=== PATIENT | female | born 1980 | race Caucasian/White ===

== ENCOUNTER 2016-10-16 16:14 | Emergency (ER) | payer MEDICAID ==
[~2016-10-16] VITALS: Ht 167.6 cm; Wt 81.8 kg
[~2016-10-16 16:14] MED LIST: ACET-2161 PO; ALBU8.5H INH; BUSP5TAB3 PO; CYCL5TAB PO; DIPH25TA23 PO; ESCI20TA30 PO; IBUP-1547 PO; LOPE2TAB8 PO; LORA10TA7 PO; MAGN400O4 PO; MULT-1198 PO; OMEP40CA52 PO; PROM25TA7 PO; QUET300T3 PO; TOLT4CAP13 PO; VITA1TAB15 PO
--- OUTSIDE RECORDS SUMMARY | 2016-10-16 16:19 | XMS REPORT ---
Author Author Nik Fatima Organization [employer] Address Unknown Phone Unavailable Care Team Providers Care Template Fitter Name Role Phone Nik Fatima CP Unavailable Allergies, Adverse Reactions, Alerts Substance Reaction Event Type Lorazepam Info Not Available Drug Allergy Demerol Info Not Available Drug Allergy Codeine Sulfate Info Not Available Drug Allergy seasonal allergies Info Not Available Non Drug Allergy Problems Problem Type Condition Code Onset Dates Condition Status Assessment Fall on same level, unspecified, initial encounter W18.30XA Active Problem Anxiety disorder, unspecified F41.9 Active Problem Opioid type dependence, unspecified abuse 304.00 Active Assessment Pain in left knee M25.562 Active Assessment Pain in right knee M25.561 Active Problem Pain in left knee M25.562 Active Problem Bipolar disorder, unspecified F31.9 Active Problem Pain in right knee M25.561 Active Problem Bipolar disorder, current episode depressed, mild or moderate severity , unspecified F31.30 Active Problem Other symptoms and signs involving cognitive functions and awareness R41.89 Active Problem Gastro-esophageal reflux disease without esophagitis K21.9 Active Problem Attention-deficit hyperactivity disorder, other type F90.8 Active Medications Medication Code System Code Instructions Start Date End Date Status Dosage Total B/C [facility] [address]-95 1 Orally daily 1 Zofran ODT [facility] [address]-70 4 MG Orally every 6 hours December 12, 2015 one tab every 6 hours as needed for nausea/vomiting. ProAir HFA [facility] [address]-30 108 (90 Base) MCG/ACT Inhalation every 6 hrs Mar 22, 2016 1 to 2 puffs as needed for cough Omeprazole [facility] [address]-25 40 MG Orally Once a day 1 capsule Tolterodine Tartrate ER [facility] [address]-04 4 MG Orally Once a day 1 capsule Colace [facility] [address]-77 100 MG Orally Once a day May 02, 2016 Jul 31, 2016 1 capsule as needed Wheelchair [facility] [address] 1 OP/PT Evaluation & Treatment for wheelchair seat Daily February 05, 2016 as directed Nystatin [facility] [address]-20 085334 UNIT/GM Externally Twice a day December 19, 2015 apply twice per day to phyllis Goyal [facility] [address]-68 100 MG Orally Three times a day Mar 22, 2016 1 capsule as needed for cough/congestion BuSpar NDC 0 5mg po BID 1 Seroquel XR [facility] [address]-86 300 MG Orally Once a day 1 tablet in the evening Lexapro [facility] [address]-71 20 MG Orally Once a day January 24, 2015 1 tablet every AM Meclizine HCl [facility] [address]-01 25 MG Orally every 8 hours as needed for vertigo. Mar 28, 2016 1 tablet as needed for vertigo symptoms Procedures Procedure Coding System Code Date OFFICE VISIT, EST-LOW COMPLEXITY (15 MIN.) CPT-4 60548 Jun 11, 2016 Vital Signs Date/Time: Jun 11, 2016 Blood Pressure Systolic 126 mm Hg Cardiac Monitoring Heart Rate 88 /min Temperature 98.1 F Oximetry 94 % Respiratory Rate 16 /min Blood Pressure Diastolic 72 mm Hg Results No Known Results Summary Purpose [employer] Submission
--- OUTSIDE RECORDS SUMMARY | 2016-10-16 16:20 | XMS REPORT ---
Author Author Nik Fatima Organization [employer] Address Unknown Phone Unavailable Care Team Providers Care Expedition Supervisor Name Role Phone Nik Fatima CP Unavailable Allergies No Known Allergies Problems Problem Type Condition Code Onset Dates Condition Status Problem Gastro-esophageal reflux disease without esophagitis K21.9 Active Problem Attention-deficit hyperactivity disorder, other type F90.8 Active Problem Bipolar disorder, unspecified F31.9 Active Problem Anxiety disorder, unspecified F41.9 Active Problem Opioid type dependence, unspecified abuse 304.00 Active Problem Bipolar disorder, current episode depressed, mild or moderate severity , unspecified F31.30 Active Problem Other symptoms and signs involving cognitive functions and awareness R41.89 Active Medications No Known Medications Results No Known Results Summary Purpose [employer] Submission
--- OUTSIDE RECORDS SUMMARY | 2016-10-16 16:20 | XMS REPORT ---
Author Author Nik Fatima Organization [employer] Address Unknown Phone Unavailable Care Team Providers Care Shift Manager Name Role Phone Nki Fatima CP Unavailable Allergies, Adverse Reactions, Alerts Substance Reaction Event Type Lorazepam Info Not Available Drug Allergy Demerol Info Not Available Drug Allergy Codeine Sulfate Info Not Available Drug Allergy seasonal allergies Info Not Available Non Drug Allergy Problems Problem Type Condition Code Onset Dates Condition Status Assessment Trochanteric bursitis, left hip M70.62 Active Problem Gastro-esophageal reflux disease without esophagitis [...] cognitive functions and awareness R41.89 Active Medications Medication Code System Code Instructions Start Date End Date Status Dosage Seroquel XR [facility] [address]-79 300 MG Orally Once a day 1 tablet in the evening Nystatin [facility] [address]-62 698228 UNIT/GM Externally Twice a day December 19, 2015 apply twice per day to groin BuSpar NDC 0 5mg po BID 1 Tessalon Perles [facility] [address]-87 100 MG Orally Three times a day Mar 22, 2016 1 capsule as needed for cough/congestion Colace [facility] [address]-51 100 MG Orally Once a day May 02, 2016 Jul 31, 2016 1 capsule as needed ProAir HFA [facility] [address]-65 108 (90 Base) MCG/ACT Inhalation every 6 hrs Mar 22, 2016 1 to 2 puffs as needed for cough Omeprazole [facility] [address]-15 40 MG Orally Once a day 1 capsule Total B/C [facility] [address]-59 1 Orally daily 1 Tolterodine Tartrate ER [facility] [address]-63 4 MG Orally Once a day 1 capsule Meclizine HCl [facility] [address]-04 25 MG Orally every 8 hours as needed for vertigo. Mar 28, 2016 1 tablet as needed for vertigo symptoms Lexapro [facility] [address]-93 20 MG Orally Once a day January 24, 2015 1 tablet every AM Wheelchair [facility] [place] [address] 1 OP/PT Evaluation & Treatment for wheelchair seat Daily February 05, 2016 as directed Zofran ODT [facility] [address]-24 4 MG Orally every 6 hours December 12, 2015 one tab every 6 hours as needed for nausea/vomiting. Procedures Procedure Coding System Code Date OFFICE VISIT, EST-LOW COMPLEXITY (15 MIN.) CPT-4 02504 May 16, 2016 Vital Signs Date/Time: May 16, 2016 Blood Pressure Systolic 128 mm Hg Cardiac Monitoring Heart Rate 94 /min Temperature 98.2 F Oximetry 96 % Respiratory Rate 16 /min Blood Pressure Diastolic 76 mm Hg Results No Known Results Summary Purpose [employer] Submission
--- OUTSIDE RECORDS SUMMARY | 2016-10-16 16:20 | XMS REPORT ---
Author Author Nik Fatima Organization [employer] Address Unknown Phone Unavailable Care Team Providers Care Director Of Academic Support Name Role Phone Nik Fatima CP Unavailable [...]
--- OUTSIDE RECORDS SUMMARY | 2016-10-16 16:21 | XMS REPORT | Continuity of Care Document ---
Author Author [facility] Organization [facility] Address Unknown Phone Unavailable Care Team Providers Care Cam Milling Machine Operator Name Role Phone FERNANDO REID MD Primary Care Physician [phone] Insurance Providers Payer Name Policy Number Subscriber Name Relationship [facility] [id number] Tia Young 19 Self Advance Directives Directive Response Recorded Date/Time Ordered Resuscitation Status Full Code 08/15/14 4:00pm Resuscitation Documents on File No 08/15/14 4:50pm Chief Complaint and Reason for Visit Chief Complaint RT UPPER EXTREMITY CELLULITIS Reason for Visit Cellulitis of right upper extremity Cellulitis of right upper extremity Acute pain in joint Nausea Cerebral palsy Depression Scoliosis Failure of outpatient treatment Hypokalemia Problems Medical Problems Problem Onset Date Status GASTROENTERITIS Unknown Active Cellulitis of right upper extremity Unknown Active Cellulitis of right upper extremity Unknown Active Acute pain in joint Unknown Active Nausea Unknown Active Cerebral palsy Unknown Active Depression Unknown Active Scoliosis Unknown Active Failure of outpatient treatment Unknown Active Hypokalemia Unknown Resolved Medications Medication Dose Route Sig Days/Qty Instructions Order Date Discontinued Date Status Aripiprazole 5 Mg PO DAILY 05/18/10 06/25/11 Discontinued Loperamide Hcl 1 Mg PO NEEDED 06/20/08 02/14/10 Discontinued [Apap 500 Mg] 1 Tab PO NEEDED 05/18/10 07/01/12 Discontinued [Bisacodyl 10MG] NEEDED 06/20/08 02/14/10 Discontinued [Chantix 1MG] 06/20/08 02/14/10 Discontinued Ibuprofen 100 Mg PO NEEDED 06/20/08 02/14/10 Discontinued [Citirizine Hcl 10 Mg] DAILY 06/20/08 02/14/10 Discontinued [Denavir 1% Cream] NEEDED 06/20/08 02/14/10 Discontinued [Dss 100 Mg] NEEDED 06/20/08 02/14/10 Discontinued Isomethept/Acetaminop/Dichlphn 1 Cap PO NEEDED 06/20/08 02/14/10 Discontinued Cyclobenzaprine Hcl NEEDED 06/20/08 02/14/10 Discontinued Guaifenesin/D-Methorphan Hb 1 Tab.sr PO TWICE A DAY 06/20/08 Discontinued Hydrocodone Bit/Acetaminophen 1 Tab PO NEEDED 06/20/08 02/14/10 Discontinued [Naproxen 220 Mg] 120 Mg PO TWICE A DAY 05/18/10 07/01/12 Discontinued [Nyststin Cream 30 Gm] TOP NEEDED 05/18/10 06/25/11 Discontinued [Oystcal 500 Mg] TWICE A DAY 02/14/10 03/04/10 Discontinued Paroxetine Hcl BEDTIME 02/14/10 03/04/10 Discontinued Lansoprazole 1 Cap PO DAILY 05/18/10 02/10/11 Discontinued Prochlorperazine Maleate 10 Mg PO NEEDED 06/20/08 02/14/10 Discontinued Promethazine Hcl 25 Mg RC NEEDED 02/14/10 03/04/10 Discontinued [Saline Nasal [place]] NEEDED 02/14/10 03/04/10 Discontinued [Sennalax-S Tabl1 Tab] NEEDED 02/14/10 03/04/10 Discontinued [Trazadone 100MG] BEDTIME 06/20/08 02/14/10 Discontinued D-Methorphan Hb/P-Ephed Hcl NEEDED 02/14/10 03/04/10 Discontinued Vitamins A And D NEEDED 02/14/10 03/04/10 Discontinued Trazodone Hcl 100 Mg PO DAILY 05/18/10 12/18/11 Discontinued Sertraline Hcl 100 Mg PO DAILY 05/18/10 07/01/12 Discontinued Ziprasidone Hcl 1 Mg PO TWICE A DAY 05/18/10 02/10/11 Discontinued Ziprasidone Hcl 1 Mg PO DAILY 05/18/10 02/10/11 Discontinued Tolterodine Tartrate 1 Mg PO DAILY 05/18/10 Active Divalproex Sodium 1 Mg PO TWICE A DAY 05/18/10 02/10/11 Discontinued Cetirizine Hcl 1 Mg PO DAILY 05/18/10 11/01/12 Discontinued Omeprazole 1 Mg PO DAILY 05/18/10 Active Fluoride Ion/Multivitamins 1 Mg PO DAILY 05/18/10 Active Lamotrigine 1 Mg PO DAILY 05/18/10 05/05/11 Discontinued Vitamin B Comp W-C 1 Tab PO DAILY 05/18/10 Active Isomethept/Acetaminop/Dichlphn 1 Cap PO NEEDED 05/18/10 05/05/11 Discontinued [Ventolin 90 Mcg Inah] 2 Puff INH NEEDED 05/18/10 06/25/11 Discontinued Ondansetron Hcl NEEDED 06/18/10 06/25/11 Discontinued Ziprasidone Hcl 60 Mg PO BEDTIME 02/10/11 12/01/11 Discontinued Ziprasidone Hcl 40 Mg PO DAILY 02/10/11 12/18/11 Discontinued Bupropion Hcl 100 Mg PO TWICE A DAY 1 Qty 06/25/11 06/22/12 Discontinued Quetiapine Fumarate 200 Mg PO DAILY 12/18/11 Active Ondansetron 4 Mg PO NEEDED 12/25/11 Active Acetaminophen 500 Mg PO TWICE A DAY 06/22/12 Active Miconazole Nitrate 45 Gm VG BEDTIME 07/01/12 11/01/12 Discontinued Sertraline Hcl 50 Mg PO DAILY 07/01/12 Active Isomethept/Acetaminop/Dichlphn 1 Cap PO EVERY 4-6 HOURS PRN 07/01/12 11/01/12 Discontinued Naproxen 500 Mg PO TWICE A DAY 07/01/12 Active Guaifenesin 600 Mg PO TWICE A DAY 07/01/12 11/01/12 Discontinued Albuterol Sulfate 18 Gm IH EVERY 4-6 HOURS PRN 07/01/12 12/29/12 Discontinued Tramadol Hcl 50 Mg PO EVERY 4-6 HOURS PRN 07/01/12 11/01/12 Discontinued Loratadine 10 Mg PO NEEDED 11/01/12 Active Cephalexin 2 Cap PO TWICE A DAY 08/15/14 08/20/14 Discontinued Sulfamethoxazole/Trimethoprim 1 Tab PO TWICE A DAY Take 1 tablet, by mouth, 2 times a day. 08/15/14 08/20/14 Discontinued Sulfamethoxazole/Trimethoprim 1 Tab PO TWICE A DAY 08/15/14 Active Cephalexin 1 Cap PO THREE TIMES A DAY 08/15/14 08/20/14 Discontinued Social History Social History Problem Response Recorded Date/Time Hx Alcohol Use Yes 08/15/2014 4:05pm Has the pt used tobacco in the last 12 months No 08/15/2014 4:57pm Tobacco Usage smoke 08/15/2014 6:54pm Query Response Start Date Stop Date Smoking Status Former smoker Hospital Discharge Instructions Instructions: Care Instructions: Reason for Hospitalization: Cellulititis of right upper ext I was in the hospital because (patient own words): "SORE ON MY ELBOW" Discharge Diet: Regular Discharge Activity: As tolerated Follow Up Appointments: Dr Reid in ~ [address] Shah [facility] in 10-14 days Wound/Incision Care: Allyevyn foam dressing overlying the open portion of the wound on Right elbow. Change every 3-5 days Condition at time of discharge: Good Good fever > 101, worsening confusion General Information: n/a Condition at time of discharge: Good Plan of Care Discharge Date 08/20/14 2:10pm Disposition 01 DISCHARGED HOME, SELF-CARE Instructions/Education Provided DI for Cellulitis -- Adult Prescriptions See Medications Section Functional Status Query Response Date Recorded Physical Hygiene Self August 20, 2014 11:37am Disabilities Visual August 20, 2014 11:37am Devices Used Glasses Wheelchair August 20, 2014 11:37am Dressing Self August 20, 2014 11:37am Ambulation Assist August 20, 2014 11:37am Diet Self August 20, 2014 11:37am Mental Status Alert August 20, 2014 11:37am Disabilities Visual August 20, 2014 11:37am Devices Used Glasses Wheelchair August 20, 2014 11:37am Physical Hygiene Self August 20, 2014 11:37am Dressing Self August 20, 2014 11:37am Ambulation Assist August 20, 2014 11:37am Diet Self August 20, 2014 11:37am Allergies, Adverse Reactions, Alerts Allergen Type Severity Reaction Status Last Updated meperidine HCl Allergy Unknown Active 08/15/14 Lorazepam Allergy Unknown Active 08/15/14 Codeine Allergy Unknown Active 08/15/14 Immunizations Name Given Type Hx Influenza Vaccination No Historical Hx Pneumococcal Vaccination Y YEAR UNKNOWN Historical Hx Tetanus, Diptheria, Pertussis Y 08/2008 Historical Hx Influenza Vaccination No Historical Hx Tetanus, Diptheria, Pertussis Y 08/2008 Historical Vital Signs Acute Vital Signs Vital Response Date/Time Temperature (Fahrenheit) 98.6 deg F (96.8 - 99.1) Temperature (Calculated Celsius) 37.86512 degrees C (36.0 - 37.3) Temperature Source Oral Pulse Rate (adult) 107 bpm (60 - 100) Respiratory Rate 16 breaths/min (10 - 20) Height 5 ft 4 in Weight 225 lb Body Mass Index 38.0 kg/m^2 Results Test Source Date Result Interp. Ref. Range Comments Acetaminophen Level December 18, 2011 9:51pm < 10 UG/ML L 10-30 TOXIC <4 HR POST INGESTION: >150 MG/L;TOXIC <12 HR POST INGESTION: >50 MG/L Activated Partial Thromboplast Time June 22, 2012 12:28pm 31.2 SEC N 24-36 Are you ordering this test to rule out VTE Yes Alanine Aminotransferase (ALT/SGPT) August 20, 2014 5:05am 99 U/L H 9- 52 Albumin August 20, 2014 5:05am 3.5 G/DL N 3.5-5.0 Albumin/Globulin Ratio August 20, 2014 5:05am 1.1 RATIO N 1.1-2.2 Alcohol, Quantitative December 18, 2011 9:51pm <10 MG/DL - Alkaline Phosphatase August 20, 2014 5:05am 115 U/L N 38-126 Amylase Level July 31, 2013 3:55am 84 U/L N 30-110 Anion Gap August 20, 2014 5:05am 10 MEQ/L N 5-15 Aspartate Amino Transf (AST/SGOT) August 20, 2014 5:05am 73 U/L H 14- 36 B-Type Natriuretic Peptide June 25, 2011 4:45pm < 15 PG/ML L 15-100 BUN/Creatinine Ratio August 20, 2014 5:05am 10 RATIO N 6-26 Band Neutrophils # July 31, 2013 3:55am 0.3 T/MM3 - Band Neutrophils % July 31, 2013 3:55am 2.0 % N 0-6 Basophils # (Auto) August 20, 2014 5:05am 0.0 T/MM3 N 0-0.2 Basophils (%) (Auto) August 20, 2014 5:05am 0.2 % N 0-2 Blood Urea Nitrogen August 20, 2014 5:05am 8.0 MG/DL N 7-17 Calcium Level August 20, 2014 5:05am 9.2 MG/DL N 8.4-10.2 Calculated Osmolality August 20, 2014 5:05am 268 MOSM/KG N 261-280 Carbon Dioxide Level August 20, 2014 5:05am 25 MEQ/L N 22-30 Chemistry Specimen Hemolysis August 20, 2014 5:05am < 15 0-25 0-25: No Hemolysis.26-70: Slight Hemolysis - can falsely elevate K and Urine Protein. 71-285: Moderate Hemolysis - can falsely elevate K, Troponin I, CA 19-9, PTH, CSF GLucose, and Urine Protein, and can falsely decrease Phenytoin. 286-999: Gross Hemolysis - can falsely elevate K, Troponin I, CA 19-9, PTH, CSF Glucose, and Urine Protine, and can falsely decrease Phenytoin. Recommend specimen recollection. Chloride Level August 20, 2014 5:05am 106 MEQ/L N 98-107 Cholesterol Level March 04, 2010 11:30pm 191 MG/DL N 132-199 Cholesterol/HDL Ratio March 04, 2010 11:30pm 4.2 RATIO H 0-4.0 Conjugated Bilirubin July 22, 2012 7:15pm 0.00 MG/DL N 0.00-0.30 Creatinine August 20, 2014 5:05am 0.8 MG/DL N 0.7-1.2 D-Dimer June 22, 2012 12:28pm < 150 NG/ML 0-230 <224 NG/ML= PRESUMPTIVE NEGATIVE FOR PE OR DVT>224 NG/ML=ADDITIONAL EVALUATION FOR PE OR DVT RECOMMENDED Eosinophils # (Auto) August 20, 2014 5:05am 0.1 T/MM3 N 0-0.5 Eosinophils (%) (Auto) August 20, 2014 5:05am 0.6 % N 0-4 Globulin August 20, 2014 5:05am 3.3 G/DL N 2.4-3.6 Glomerular Filtration Rate Calc August 20, 2014 5:05am 83 - Glucometer May 05, 2011 6:31pm 93 mg/dL N 65-110 Glucose Level August 20, 2014 5:05am 87 MG/DL N 65-110 HDL Cholesterol Direct March 04, 2010 11:30pm 46 MG/DL N 40-60 Hematocrit August 20, 2014 5:05am 35.6 % L 36-46 Hemoglobin August 20, 2014 5:05am 11.5 GM/DL L 12-16 Human Chorionic Gonadotropin, Qual June 20, 2008 10:38pm Negative - Icterus Index August 20, 2014 5:05am < 2 0-7 Immature Granulocyte # (Auto) August 20, 2014 5:05am 0.04 T/MM3 H 0.00- 0.03 Immature Granulocyte % (Auto) August 20, 2014 5:05am 0.3 % N 0.0-0.5 LDL Cholesterol, Calculated March 04, 2010 11:30pm 121.4 N 66-159 Lab Scanned Report August 12, 2014 8:34pm LAB TEST FORM REQUEST [id number] - Lipase July 31, 2013 3:55am 92 U/L N 23-300 Lymphocytes # (Auto) August 20, 2014 5:05am 1.5 T/MM3 N 1-4.8 Lymphocytes # (Manual) July 31, 2013 3:55am 0.1 T/MM3 L 1-4.8 Lymphocytes % (Manual) July 31, 2013 3:55am 1.0 % L 23-45 Lymphocytes (%) (Auto) August 20, 2014 5:05am 11.0 % L 23-45 Magnesium Level August 16, 2014 4:16am 2.0 MG/DL N 1.6-2.3 Mean Corpuscular Hemoglobin August 20, 2014 5:05am 27.4 UUG N 26-34 Mean Corpuscular Hemoglobin Concent August 20, 2014 5:05am 32.3 GM/DL N 31-37 Mean Corpuscular Volume August 20, 2014 5:05am 85.0 UM3 N 80-100 Mean Platelet Volume August 20, 2014 5:05am 8.6 UM3 L 9.4-12.4 Monocytes # (Auto) August 20, 2014 5:05am 1.0 T/MM3 H 0-0.8 Monocytes (%) (Auto) August 20, 2014 5:05am 7.4 % N 0-9.0 HM-Suu-C-Type Natriuretic Peptide June 22, 2012 12:28pm 53 PG/ML N 0 -175 Rule in cut points: <50 years old=450; 50-75 years old=900; >75 years old=1800; When utilizing ProBNP rule-in cut points, adjustment for impaired renal function is typically not required. Neutrophils # (Auto) August 20, 2014 5:05am 10.7 T/MM3 H 1.8-7.7 Neutrophils # (Manual) July 31, 2013 3:55am 12.3 T/MM3 H 1.8-7.7 Neutrophils % (Manual) July 31, 2013 3:55am 97.0 % H 33-66 Neutrophils (%) (Auto) August 20, 2014 5:05am 80.5 % H 33-66 Platelet Count August 20, 2014 5:05am 330 T/MM3 N 130-400 Potassium Level August 20, 2014 5:05am 3.7 MEQ/L N 3.6-5 Prealbumin August 15, 2014 2:09pm 21.3 MG/DL N 17.6-36.0 COMMENT may use blood in lab Procalcitonin August 16, 2014 4:16am < 0.05 NG/ML - PCT </=0.5 ng/ mL - sepsis not likely;PCT >0.5 and </=2 ng/mL - sepsis possible; PCT >2 ng/mL - sepsis likely; PCT >/=10 ng/mL - systemic inflammatory response - sepsis or septic shock highly indicated. Prothromb Time International Ratio June 22, 2012 12:28pm 1.02 N 0.86 -1.10 THERAPUTIC RANGE=2.00-3.00 FOR ANTI-THROMBOSIS THERAPUTIC RANGE=2.50- 3.50 FOR IMPLANTED VALVE RDW Standard Deviation August 20, 2014 5:05am 43.0 FL N 36.9-50.2 Red Blood Count August 20, 2014 5:05am 4.19 M/MM3 N 4.00-5.20 Salicylates Level December 18, 2011 9:51pm < 1.0 MG/DL L 2-20 Sodium Level August 20, 2014 5:05am 141 MEQ/L N 134-144 Thyroid Stimulating Hormone (TSH) August 15, 2014 2:09pm 0.57 MIU/L N 0.47-4.68 COMMENT may use blood in lab Total Bilirubin August 20, 2014 5:05am 0.70 MG/DL N 0.20-1.30 Total Protein August 20, 2014 5:05am 6.8 G/DL N 6.3-8.2 Triglycerides Level March 04, 2010 11:30pm 118 MG/DL N 35-135 Troponin I July 22, 2012 7:15pm < 0.012 ng/ml 0-0.12 Turbidity August 20, 2014 5:05am < 20 0-20 Unconjugated Bilirubin July 22, 2012 7:15pm 0.20 MG/DL N 0.00-1.10 Urinalysis Comment July 22, 2012 9:40pm Microscopic not ind. - Has specimen been collected/obtained? Y Urine Acetaminophen Screen December 18, 2011 10:10pm Positive NG/ML - Urine Amphetamines Screen December 18, 2011 10:10pm Negative NG/ML - Urine Bacteria December 25, 2011 7:15am Trace H - Has specimen been collected/obtained? Y Urine Barbiturates Screen December 18, 2011 10:10pm Negative NG/ML - Urine Benzodiazepines Screen December 18, 2011 10:10pm Negative NG/ML - Urine Bilirubin July 31, 2013 4:32am Negative - Has specimen been collected/obtained? Y Urine Blood July 31, 2013 4:32am Negative - Has specimen been collected/obtained? Y Urine Calcium Oxalate Crystals June 10, 2011 9:10am Few - Has specimen been collected/obtained? Y Urine Cannabinoids Screen December 18, 2011 10:10pm Negative NG/ML - Urine Cocaine Screen December 18, 2011 10:10pm Negative NG/ML - Urine Collection Type July 31, 2013 4:32am Straight cath - Has specimen been collected/obtained? Y Urine Color July 31, 2013 4:32am Yellow - Has specimen been collected/obtained? Y Urine Culture Indicated July 31, 2013 4:32am Cult not indicated - Has specimen been collected/obtained? Y Urine Drug Screen Confirmation March 05, 2010 12:44am Sent out - Urine Glucose (UA) July 31, 2013 4:32am Negative - Has specimen been collected/obtained? Y Urine Ketones July 31, 2013 4:32am Negative - Has specimen been collected/obtained? Y Urine Leukocyte Esterase July 31, 2013 4:32am Negative - Has specimen been collected/obtained? Y Urine Methadone Screen December 18, 2011 10:10pm Negative NG/ML - Urine Methamphetamines Screen December 18, 2011 10:10pm Negative NG/ML - Urine Microscopic Not Indicated May 05, 2011 6:36pm Not indicated - Has specimen been collected/obtained? Y Urine Mucus March 05, 2010 12:20am Present - Has specimen been collected/obtained? Y Urine Nitrite July 31, 2013 4:32am Negative - Has specimen been collected/obtained? Y Urine Opiates Screen December 18, 2011 10:10pm Negative NG/ML - Urine Phencyclidine Screen December 18, 2011 10:10pm Negative NG/ML - Urine Test December 25, 2011 7:15am Negative - Has specimen been collected/obtained? Y Urine Protein July 31, 2013 4:32am Negative - Has specimen been collected/obtained? Y Urine RBC December 18, 2011 10:10pm 1-3 /HPF - Has specimen been collected /obtained? Y Urine Specific [place] July 31, 2013 4:32am 1.015 - Has specimen been collected/obtained? Y Urine Squamous Epithelial Cells December 25, 2011 7:15am Few - Has specimen been collected/obtained? Y Urine Transitional Epithelial Cells March 05, 2010 12:20am 1-3 /HPF - Has specimen been collected/obtained? Y Urine Tricyclic Antidepressants December 18, 2011 10:10pm Negative NG/ML - Urine Turbidity July 31, 2013 4:32am Clear - Has specimen been collected/obtained? Y Urine Urobilinogen July 31, 2013 4:32am Normal EU/DL - Has specimen been collected/obtained? Y Urine WBC December 25, 2011 7:15am 0-1 /HPF - Has specimen been collected/ obtained? Y Urine pH July 31, 2013 4:32am 5.0 - Has specimen been collected/ obtained? Y VLDL Cholesterol March 04, 2010 11:30pm 23.6 MG/DL N 0-28 Valproic Acid (Depakene) Level May 18, 2010 12:20pm 19.0 UG/ML L 50- 120 Vancomycin Level Trough August 17, 2014 6:39am 20.07 UG/ML H 15-20 Venous Blood Lactate August 16, 2014 4:16am 0.6 MMOL/L N 0.6-2.2 Vitamin B12 Level August 15, 2014 2:09pm 701 PG/ML N 239-931 COMMENT may use blood in lab White Blood Count August 20, 2014 5:05am 13.3 T/MM3 H 4.5-11.0 Blood Culture Peripheral Blood August 15, 2014 2:09pm NO GROWTH AFTER 5 DAYS Urine Culture Urine, Clean Catch Voided December 18, 2011 10:10pm Gram Positive Adan Gram Stain Elbow-Right August 12, 2014 6:25pm Name: TAI YOUNG #: [id number] : 1980 Sex: F Loc / Svc: SRG DOS: 08/15/14 Signed Report #: [id number] DIAGNOSTIC IMAGING REPORT TYPE OF EXAM: ELBOW RIGHT 3 VIEW Dictated By: TORSTEN DEL RIO MD Indication: ITS.REASON: right elbow pain, r/o effusion Comparison: None Findings: There is no acute fracture, dislocation or malalignment identified. No joint effusion seen. Impression: No acute osseous abnormality. . Procedures Procedure Status Date Provider(s) CULTURE OTHR SPECIMN AEROBIC completed 08/12/14 CULTR BACTERIA EXCEPT BLOOD completed 08/12/14 CULTURE TYPE IMMUNOLOGIC completed 08/12/14 MICROBE SUSCEPTIBLE RICHY completed 08/12/14 SMEAR GRAM STAIN completed 08/12/14 Encounters Encounter Location Date/Time Discharged Inpatient [facility] 08/16/14 8:16pm Registered Clinic [facility] 08/12/14 8:14pm Recent Diagnosis Cellulitis of right upper extremity Cellulitis of right upper extremity Acute pain in joint Nausea Cerebral palsy Depression Scoliosis Failure of outpatient treatment Hypokalemia
--- OUTSIDE RECORDS SUMMARY | 2016-10-16 16:21 | XMS REPORT ---
Author Author Nik Fatima Organization [employer] Address Unknown Phone Unavailable Care Team Providers Care Director Epidemiology Name Role Phone Nik Fatima CP Unavailable [...] Instructions Start Date End Date Status Dosage Colace [facility] [address]-86 100 MG Orally Once a day May 02, 2016 Jul 31, 2016 1 capsule as needed Results No Known Results Summary Purpose [employer] Submission
--- OUTSIDE RECORDS SUMMARY | 2016-10-16 16:22 | XMS REPORT ---
Author Author Nik Fatima Organization [employer] Address Unknown Phone Unavailable Care Team Providers Care Vice President Of Manufacturing Name Role Phone Nik Fatima CP Unavailable Allergies, Adverse Reactions, Alerts Substance Reaction Event Type Lorazepam Info Not Available Drug Allergy Demerol Info Not Available Drug Allergy Codeine Sulfate Info Not Available Drug Allergy seasonal allergies Info Not Available Non Drug Allergy Problems Problem Type Condition Code Onset Dates Condition Status Assessment Gastro-esophageal reflux disease without esophagitis K21.9 Active Assessment Nausea with vomiting, unspecified R11.2 Active Assessment Upper abdominal pain, unspecified R10.10 Active Assessment Headache R51 Active Problem Gastro-esophageal reflux disease without esophagitis [...] Instructions Start Date End Date Status Dosage Wheelchair [facility] 420[address]-78743 1 OP/PT Evaluation & Treatment for wheelchair seat Daily February 05, 2016 as directed Bentley Goyal [facility] [address]-83 100 MG Orally Three times a day Mar 22, 2016 1 capsule as needed for cough/congestion ProAir HFA [facility] [address]-69 108 (90 Base) MCG/ACT Inhalation every 6 hrs Mar 22, 2016 1 to 2 puffs as needed for cough Meclizine HCl [facility] [address]-78 25 MG Orally every 8 hours as needed for vertigo. Mar 28, 2016 1 tablet as needed for vertigo symptoms Tolterodine Tartrate ER [facility] [address]-51 4 MG Orally Once a day 1 capsule Omeprazole [facility] [address]-72 40 MG Orally Once a day 1 capsule Lexapro [facility] [address]-35 20 MG Orally Once a day January 24, 2015 1 tablet every AM Seroquel XR [facility] [address]-38 300 MG Orally Once a day 1 tablet in the evening BuSpar NDC 0 5mg po BID 1 Zofran ODT [facility] [address]-57 4 MG Orally every 6 hours December 12, 2015 one tab every 6 hours as needed for nausea/vomiting. Total B/C [facility] [address]-23 1 Orally daily 1 Nystatin [facility] [address]-35 [id number] UNIT/GM Externally Twice a day December 19, 2015 apply twice per day to groin Procedures Procedure Coding System Code Date OFFICE VISIT, EST-LOW COMPLEXITY (15 MIN.) CPT-4 74449 Apr 29, 2016 Vital Signs Date/Time: Apr 29, 2016 Blood Pressure Systolic 136 mm Hg Cardiac Monitoring Heart Rate 72 /min Temperature 98.2 F Oximetry 99 % Respiratory Rate 20 /min Blood Pressure Diastolic 84 mm Hg Results No Known Results Summary Purpose [employer] Submission
[2016-10-16 16:23] VITALS: Ht 167.6 cm; Wt 81.8 kg
--- OUTSIDE RECORDS SUMMARY | 2016-10-16 16:23 | XMS REPORT | Continuity of Care Document ---
Author Author [facility] Organization [facility] Address Unknown Phone Unavailable Allergies Active Description Code Type Severity Reaction Onset Reported/Identified Relationship to Patient Clinical Status Yes codeine codeine Drug Allergy Unknown N/A 04/18/2009 Yes meperidine HCl meperidine HCl Drug Allergy Unknown N/A 04/18/2009 Medications Problems Date Dx Coded Attending Type Code Diagnosis Diagnosed By 09/26/2015 Nik Fatima DO M25.559 PAIN IN UNSPECIFIED HIP 09/26/2015 Nik Fatima DO M54.6 PAIN IN THORACIC SPINE 09/26/2015 Nik Fatima DO M25.559 PAIN IN UNSPECIFIED HIP 09/26/2015 Nik Fatima DO M54.6 PAIN IN THORACIC SPINE 10/27/2015 Nik Fatima DO M54.6 PAIN IN THORACIC SPINE 12/15/2015 Nik Fatima DO A M72.2 PLANTAR FASCIAL FIBROMATOSIS 12/15/2015 Nik Fatima DO M72.2 PLANTAR FASCIAL FIBROMATOSIS 04/12/2016 Nik Fatima DO M25.559 PAIN IN UNSPECIFIED HIP 04/12/2016 Nik Fatima DO M54.6 PAIN IN THORACIC SPINE Procedures Results Encounters ACCT No. Visit Date/Time Discharge Status Pt. Type Provider Facility Loc./Unit Complaint [id number] 10/11/2013 12:48:00 10/11/2013 23 :59:59 [facility] Outpatient
--- OUTSIDE RECORDS SUMMARY | 2016-10-16 16:24 | XMS REPORT | Continuity of Care Document ---
Author Author [facility] Organization [facility] Address Unknown Phone Unavailable Care Team Providers Care Gastroenterology Physician Name Role Phone EMILI DOUGHERTY DO Primary Care Physician [phone] Insurance Providers Guarantor Tia Young Address [address] [place] [address] Email DENIED NO TO PT PORT Payer [facility] Policy Number [id number] Subscriber's Name Tia Young Relationship 18 Self Effective Date 16 Expiration Date 16 Chief Complaint and Reason for Visit Chief Complaint Fall Reason for Visit Lower back pain Fall Problems Active Problems Medical Problem Onset Date Status Acute pain in joint Unknown Acute Atypical chest pain Unknown Acute Back pain Unknown Acute Cellulitis of right upper extremity Unknown Acute Cellulitis of right upper extremity Unknown Acute Cerebral palsy Unknown Chronic Contusion Unknown Acute Depression Unknown Chronic Dysuria Unknown Acute Failure of outpatient treatment Unknown Acute GASTROENTERITIS Unknown Acute Headache Unknown Acute Hypokalemia Unknown Resolved Left leg pain Unknown Acute Nausea Unknown Acute Nausea Unknown Acute Scoliosis Unknown Chronic Suspected DVT (deep vein thrombosis) Unknown Acute UTI (lower urinary tract infection) Unknown Acute Vertigo Unknown Acute Past Problems Medical Problem Onset Date Bilateral hip pain Unknown Fall Unknown Lower back pain Unknown Nausea and vomiting Unknown Medications Current Home Medications Medication Dose Units Route Directions Days Qty Instructions Start Date Acetaminophen (Acetaminophen Extra Strength) 500 Mg Tablet 1,000 Mg Oral Every 4 Hours as needed for Pain 08/04/15 Albuterol Sulfate (Proair Hfa 90 Mcg/Actuation) 8.5 Gm Hfa.aer.ad 1-2 Puff Inhalation Every 4-6 Hours as needed for Prn Orders 03/06/16 Buspirone Hcl 5 Mg Tablet 5 Mg Oral Twice A Day 04/29/16 Cyclobenzaprine Hcl 5 Mg Tablet 5 Mg Oral Daily as needed for Headache 06/19/15 Diphenhydramine Hcl 25 Mg Tablet 25-50 Mg Oral Every 8 Hours as needed for Allery Symptoms 08/04/15 Escitalopram Oxalate 20 Mg Tablet 20 Mg Oral Daily 06/19/15 Ibuprofen 800 Mg Tablet 800 Mg Oral Every 6-8 Hours as needed for Pain 12/08/15 Loperamide Hcl (Anti-Diarrheal) 2 Mg Tablet 2 Mg Oral Four Times Daily as needed for Diarrhea 06/19/15 Loratadine 10 Mg Tablet 10 Mg Oral Daily 11/01/12 Magnesium Hydroxide (Milk Of Magnesia) 400 Mg/5 Ml Oral.susp 30 Ml Oral Daily as needed for Constipation 08/04/15 Multivitamin (Multi Vitamin Daily) 1 Each Tablet 1 Tab Oral Daily 03/20/15 Omeprazole 40 Mg Capsule.dr 40 Mg Oral Daily 03/20/15 Promethazine Hcl 25 Mg Tablet 25 Mg Oral Every 8 Hours as needed for Nausea 06/19/15 Quetiapine Fumarate (Seroquel Xr) 300 Mg Tablet 300 Mg Oral 1800 03/20/15 Tolterodine Tartrate (Tolterodine Tartrate Er) 4 Mg Cap.er.24h 4 Mg Oral Daily 06/19/15 Vitamin B Comp W-C (Total B With C) 1 Tab Tablet 1 Tab Oral Daily 06/19/15 Past Home Medications Medication Directions Ordered Status Albuterol Sulfate (Ventolin Hfa) 18 Gm Hfa.aer.ad, 18 Gm Inhalation Every 4-6 Hours as needed 07/01/12 Discontinued Apap 500 Mg , 1 Tab Oral As Needed 05/18/10 Discontinued Aripiprazole (Abilify) 5 Mg Tablet, 5 Mg Oral Daily 05/18/10 Discontinued Bisacodyl 10MG , As Needed 06/20/08 Discontinued Bupropion Hcl (Wellbutrin) 100 Mg Tablet, 100 Mg Oral Twice A Day 06/25/11 Discontinued Cephalexin (Keflex) 500 Mg Capsule, 2 Cap Oral Twice A Day 08/15/14 Discontinued Cephalexin (Keflex) 500 Mg Capsule, 1 Cap Oral Three Times A Day 08/15/14 Discontinued Cetirizine Hcl (Zyrtec) 10 Mg Tablet, 1 Mg Oral Daily 05/18/10 Discontinued Chantix 1MG , 06/20/08 Discontinued Citirizine Hcl 10 Mg , Daily 06/20/08 Discontinued Cyclobenzaprine Hcl (Flexeril) 10 Mg Tablet, As Needed 06/20/08 Discontinued D-Methorphan Hb/P-Ephed Hcl (Vicks 44D Cough & Head Liq) 240 Ml Elixir, As Needed 02/14/10 Discontinued Denavir 1% Cream , As Needed 06/20/08 Discontinued Divalproex Sodium (Depakote Er) 500 Mg Tab.sr.24h, 1 Mg Oral Twice A Day 18/05 Discontinued Dss 100 Mg , As Needed 06/20/08 Discontinued Guaifenesin (Mucinex) 600 Mg Tablet.er, 600 Mg Oral Twice A Day 07/01/12 Discontinued Guaifenesin/D-Methorphan Hb (Guaifenesin Dm Tablet) 1 Tab.sr .12 H Tab.sr.12h, 1 Tab.sr Oral Twice A Day 06/20/08 Discontinued Hydrocodone Bit/Acetaminophen (Hydrocodone-Apap 5-325 Tab) 1 Tab Tablet, 1 Tab Oral As Needed 06/20/08 Discontinued Ibuprofen (Child Ibuprofen) 100 Mg/5 Ml Oral.susp, 100 Mg Oral As Needed 20/03 Discontinued Isomethept/Acetaminop/Dichlphn (Midrin) 1 Cap Capsule, 1 Cap Oral Every 4-6 Hours as needed 07/01/12 Discontinued Isomethept/Acetaminop/Dichlphn (Midrin) 1 Cap Capsule, 1 Cap Oral As Needed 05/18/10 Discontinued Isomethept/Acetaminop/Dichlphn (Epidrin Capsule) 1 Cap Capsule, 1 Cap Oral As Needed 06/20/08 Discontinued Lamotrigine (Lamictal) 100 Mg Tablet, 1 Mg Oral Daily 05/18/10 Discontinued Lansoprazole (Prevacid) 30 Mg Capsule.dr, 1 Cap Oral Daily 05/18/10 Discontinued Loperamide Hcl (Anti-Diarrheal) 1 Mg/5 Ml Liquid, 1 Mg Oral As Needed Discontinued Miconazole Nitrate (Miconazole 7) 45 Gm Cream.appl, 45 Gm Vaginal Bedtime 12/06 Discontinued Naproxen 220 Mg , 120 Mg Oral Twice A Day 05/18/10 Discontinued Nyststin Cream 30 Gm , Topically As Needed 05/18/10 Discontinued Ondansetron (Zofran Odt) 4 Mg/Udtablet Tab.rapdis, 4 Mg Oral As Needed Discontinued Ondansetron Hcl (Zofran) 4 Mg Tablet, As Needed 06/18/10 Discontinued Oystcal 500 Mg , Twice A Day 02/14/10 Discontinued Paroxetine Hcl 40 Mg Tablet, Bedtime 02/14/10 Discontinued Prochlorperazine Maleate 10 Mg Tablet, 10 Mg Oral As Needed 06/20/08 Discontinued Promethazine Hcl (Promethegan) 25 Mg/Supp.rect Supp.rect, 25 Mg Rectal As Needed 02/14/10 Discontinued Saline Nasal [place] , As Needed 02/14/10 Discontinued Sennalax-S Tabl1 Tab (Sennalax-S Tablet) , As Needed 02/14/10 Discontinued Sertraline Hcl (Zoloft) 50 Mg Tablet, 100 Mg Oral Daily 05/18/10 Discontinued Sulfamethoxazole/Trimethoprim (Bactrim Ds Tablet) 1 Each Tablet, 1 Tab Oral Twice A Day 08/15/14 Discontinued Sulfamethoxazole/Trimethoprim (Bactrim Ds Tablet) 1 Each Tablet, 1 Tab Oral Twice A Day 08/15/14 Discontinued Tramadol Hcl 50 Mg Tablet, 50 Mg Oral Every 4-6 Hours as needed 07/01/12 Discontinued Trazadone 100MG , Bedtime 06/20/08 Discontinued Trazodone Hcl 100 Mg Tablet, 100 Mg Oral Daily 05/18/10 Discontinued Ventolin 90 Mcg Inah 90 Mcg Inhaler, 2 Puff Inhalation As Needed 05/18/10 Discontinued Vitamins A And D (Vitamin A & D Ointment) 5 Gm Oint, As Needed 02/14/10 Discontinued Ziprasidone Hcl (Geodon) 40 Mg Capsule, 40 Mg Oral Daily 02/10/11 Discontinued Ziprasidone Hcl (Geodon) 60 Mg Capsule, 60 Mg Oral Bedtime 02/10/11 Discontinued Ziprasidone Hcl (Geodon) 20 Mg Capsule, 1 Mg Oral Twice A Day 05/18/10 Discontinued Ziprasidone Hcl (Geodon) 60 Mg Capsule, 1 Mg Oral Daily 05/18/10 Discontinued Social History Social History Problem Response Recorded Date/Time Onset Date Status Hx Substance Use No 04/29/2016 9:34pm Not Applicable Not Applicable Hx Alcohol Use Yes 04/29/2016 9:34pm Not Applicable Not Applicable Has the pt used tobacco in the last 12 months No 06/16/2015 1:03pm Not Applicable Not Applicable Tobacco Usage smoke 08/15/2014 6:54pm Not Applicable Not Applicable Query Response Start Date Stop Date Smoking Status Never smoker Hospital Discharge Instructions No hospital discharge instructions. Plan of Care Discharge Date 04/29/16 10:08pm Disposition 01 DISCHARGED HOME, SELF-CARE Condition at Discharge Improved Instructions/Education Provided Low Back Pain Prescriptions See Medication Section Referrals EMILI DOUGHERTY DO Address: [address] [place] [phone] Additional Instructions/Education May take ibuprofen every 6-8 for pain with food. Avoid re-injury. If you pain is not improving or worsening follow with your PCP or return to ED. Follow treatment plan. Care Plan and Goals Physician Care Plan Problem: Fall, acute on chronic lower back pain Goal: Follow up with primary care provider Instructions: Take medications and follow care plan as discussed/written Functional Status No functional status results. Allergies, Adverse Reactions, Alerts Allergen Type Severity Reaction Status Last Updated meperidine HCl Allergy Unknown Active 04/29/16 Lorazepam Allergy Unknown Active 04/29/16 Codeine Allergy Unknown Active 04/29/16 Immunizations Query Response on File Recorded Date/Time Hx Influenza Vaccination No 06/16/15 1:03pm Hx Pneumococcal Vaccination Y YEAR UNKNOWN 06/16/15 1:03pm Hx Tetanus, Diptheria, Pertussis Y 08/200803/20/15 3:34pm Hx Influenza Vaccination No 06/16/15 1:03pm Hx Tetanus, Diptheria, Pertussis Y 08/200803/20/15 3:34pm Vital Signs Acute Vital Signs Vital Response Date/Time Temperature (Fahrenheit) 98.1 deg F (96.8 - 99.1) 04/29/2016 10:08pm Temperature (Calculated Celsius) 36.42470 degrees C (36.0 - 37.3) 04/29/2016 10:08pm Pulse Rate (adult) 93 bpm (60 - 100) 04/29/2016 10:08pm Respiratory Rate 20 breaths/min (10 - 20) 04/29/2016 10:08pm O2 Sat by Pulse Oximetry 98 % (90 - 100) 04/29/2016 10:08pm Blood Pressure 119/62 mm Hg 04/29/2016 10:08pm Height (Feet) 5 feet 04/29/2016 8:55pm Height (Inches) 6.00 inches 04/29/2016 8:55pm Weight (Kilograms) 110.000 kg 04/29/2016 8:55pm Body Mass Index (BMI) 39.0 04/29/2016 8:55pm Results Laboratory Results Test Name Result Units Flags Reference Collection Date/Time Result Date/ Time Comments White Blood Count 11.8 T/MM3 H 4.5-11.0 04/29/2016 3:33pm 04/29/2016 3: 42pm Red Blood Count 5.00 M/MM3 4.00-5.20 04/29/2016 3:33pm 04/29/2016 3: 42pm Hemoglobin 13.0 GM/DL 12-16 04/29/2016 3:33pm 04/29/2016 3:42pm Hematocrit 40.7 % 36-46 04/29/2016 3:33pm 04/29/2016 3:42pm Mean Corpuscular Volume 81.4 UM3 80-100 04/29/2016 3:33pm 04/29/2016 3: 42pm Mean Corpuscular Hemoglobin 26.0 UUG 26-34 04/29/2016 3:33pm 2015 3:42pm Mean Corpuscular Hemoglobin Concent 31.9 GM/DL 31-37 04/29/2016 3:33pm 04/29/2016 3:42pm RDW Standard Deviation 44.5 FL 36.9-50.2 04/29/2016 3:33pm 04/29/2016 3 :42pm Platelet Count 359 T/MM3 130-400 04/29/2016 3:33pm 04/29/2016 3:42pm Mean Platelet Volume 8.9 UM3 L 9.4-12.4 04/29/2016 3:33pm 04/29/2016 3: 42pm Neutrophils (%) (Auto) 79.4 % H 33-66 04/29/2016 3:33pm 04/29/2016 3: 42pm Lymphocytes (%) (Auto) 15.7 % L 23-45 04/29/2016 3:33pm 04/29/2016 3: 42pm Monocytes (%) (Auto) 4.3 % 0-9.0 04/29/2016 3:33pm 04/29/2016 3:42pm Eosinophils (%) (Auto) 0.1 % 0-4 04/29/2016 3:33pm 04/29/2016 3:42pm Basophils (%) (Auto) 0.3 % 0-2 04/29/2016 3:33pm 04/29/2016 3:42pm Immature Granulocyte % (Auto) 0.2 % 0.0-0.5 04/29/2016 3:33pm 2015 3:42pm Absolute Neutrophils (auto) 9.3 T/MM3 H 1.8-7.7 04/29/2016 3:33pm 2015 3:42pm Absolute Lymphocytes (auto) 1.9 T/MM3 1-4.8 04/29/2016 3:33pm 2015 3:42pm Absolute Monocytes (auto) 0.5 T/MM3 0-0.8 04/29/2016 3:33pm 04/29/2016 3:42pm Absolute Eosinophils (auto) 0.0 T/MM3 0-0.5 04/29/2016 3:33pm 2015 3:42pm Absolute Basophils (auto) 0.0 T/MM3 0-0.2 04/29/2016 3:33pm 04/29/2016 3:42pm Absolute Immature Granulocyte (auto 0.02 T/MM3 0.00-0.03 04/29/2016 3: 33pm 04/29/2016 3:42pm Icterus Index < 2 0-7 04/29/2016 3:33pm 04/29/2016 3:53pm Chemistry Specimen Hemolysis < 15 0-25 04/29/2016 3:33pm 04/29/2016 3 :53pm 0-25: Specimen Exhibited No Hemolysis. Turbidity < 20 0-20 04/29/2016 3:33pm 04/29/2016 3:53pm Sodium Level 144 MEQ/L 134-144 04/29/2016 3:33pm 04/29/2016 3:53pm Potassium Level 4.2 MEQ/L 3.6-5 04/29/2016 3:33pm 04/29/2016 3:53pm Chloride Level 106 MEQ/L 98-107 04/29/2016 3:33pm 04/29/2016 3:53pm Carbon Dioxide Level 26 MEQ/L 22-30 04/29/2016 3:33pm 04/29/2016 3: 53pm Anion Gap 12 MEQ/L 5-15 04/29/2016 3:33pm 04/29/2016 3:53pm Blood Urea Nitrogen 10.0 MG/DL 7-17 04/29/2016 3:33pm 04/29/2016 3: 53pm Creatinine 0.6 MG/DL L 0.7-1.2 04/29/2016 3:33pm 04/29/2016 3:53pm BUN/Creatinine Ratio 17 RATIO 6-26 04/29/2016 3:33pm 04/29/2016 3:53pm Glomerular Filtration Rate Calc 114 04/29/2016 3:33pm 04/29/2016 3: 53pm Glucose Level 91 MG/DL 65-110 04/29/2016 3:33pm 04/29/2016 3:53pm Calculated Osmolality 276 MOSM/KG 261-280 04/29/2016 3:33pm 04/29/2016 3:53pm Calcium Level 9.8 MG/DL 8.4-10.2 04/29/2016 3:33pm 04/29/2016 3:53pm Total Bilirubin 0.50 MG/DL 0.20-1.30 04/29/2016 3:33pm 04/29/2016 3: 53pm Alkaline Phosphatase 94 U/L 38-126 04/29/2016 3:33pm 04/29/2016 3:53pm Total Protein 8.0 G/DL 6.3-8.2 04/29/2016 3:33pm 04/29/2016 3:53pm Albumin 4.4 G/DL 3.5-5.0 04/29/2016 3:33pm 04/29/2016 3:53pm Globulin 3.6 G/DL 2.4-3.6 04/29/2016 3:33pm 04/29/2016 3:53pm Albumin/Globulin Ratio 1.2 RATIO 1.1-2.2 04/29/2016 3:33pm 04/29/2016 3 :53pm Aspartate Amino Transf (AST/SGOT) 41 U/L H 14-36 04/29/2016 3:33pm 04/29 3:53pm Alanine Aminotransferase (ALT/SGPT) 63 U/L H 9-52 04/29/2016 3:33pm 09/2015 3:53pm C-Reactive Protein 18.5 MG/L H 0-9 04/29/2016 3:33pm 04/29/2016 3:53pm Lipase 101 U/L 23-300 04/29/2016 3:33pm 04/29/2016 3:53pm Plasma Lactate 1.2 MMOL/L 0.6-2.2 04/29/2016 3:33pm 04/29/2016 3:49pm Procedures Procedure Status Date Provider(s) THER/PROPH/DIAG INJ SC/IM Completed 03/06/16 THER/PROPH/DIAG INJ SC/IM Completed 03/06/16 EMERGENCY DEPT VISIT Completed 03/06/16 848806"INJECTION, PROCHLORPERAZINE, UP TO 10 MG" Completed 03/06/16 288434"INJECTION, KETOROLAC TROMETHAMINE, PER 15 MG" Completed 03/06/16 Encounters Encounter Location Arrival/Admit Date Discharge/Depart Date Attending Provider Departed Emergency Room [facility] 04/29/16 8:55pm 04/29/16 10: 08pm MARTINEZ JENSEN MD Registered Clinic [facility] 04/29/16 2:24pm EMILI DOUGHERTY DO Departed Emergency Room [facility] 03/06/16 2:44pm 03/06/16 3: 45pm GABI MO MD Recent Diagnosis
--- OUTSIDE RECORDS SUMMARY | 2016-10-16 16:24 | XMS REPORT ---
Author Author [facility] Fatima Organization [employer] Address Unknown Phone Unavailable Care Team Providers Care Overlock Sleeve Setter Name Role Phone Nik Fatima CP Unavailable Allergies, Adverse Reactions, Alerts Substance Reaction Event Type Lorazepam Info Not Available Drug Allergy Demerol Info Not Available Drug Allergy Codeine Sulfate Info Not Available Drug Allergy seasonal allergies Info Not Available Non Drug Allergy Problems Problem Type Condition Code Onset Dates Condition Status Assessment Iron deficiency E61.1 Active Assessment Encounter for general adult medical examination without abnormal findings Z00.00 Active Assessment Constipation, unspecified K59.00 Active Problem Gastro-esophageal reflux disease without esophagitis K21.9 Active Problem Attention-deficit hyperactivity disorder, other type F90.8 Active Problem Bipolar disorder, unspecified F31.9 Active Problem Anxiety disorder, unspecified F41.9 Active Problem Opioid type dependence, unspecified abuse 304.00 Active Problem Bipolar disorder, current episode depressed, mild or moderate severity , unspecified F31.30 Active Problem Other symptoms and signs involving cognitive functions and awareness R41.89 Active Assessment Unspecified fall, subsequent encounter W19.XXXD Active Assessment Other fall E888.8 Active Assessment Abnormal results of liver function studies R94.5 Active Medications Medication Code System Code Instructions Start Date End Date Status Dosage Wheelchair [facility] [address] 1 OP/PT Evaluation & Treatment for wheelchair seat Daily February 05, 2016 as directed Nystatin [facility] [address]-26 757525 UNIT/GM Externally Twice a day December 19, 2015 apply twice per day to groin BuSpar NDC 0 5mg po BID 1 ProAir HFA [facility] [address]-51 108 (90 Base) MCG/ACT Inhalation every 6 hrs Mar 22, 2016 1 to 2 puffs as needed for cough Tolterodine Tartrate ER [facility] [address]-63 4 MG Orally Once a day 1 capsule Colace [facility] [address]-79 100 MG Orally Once a day May 02, 2016 Jul 31, 2016 1 capsule as needed Omeprazole [facility] [address]-47 40 MG Orally Once a day 1 capsule Total B/C [facility] [address]-61 1 Orally daily 1 Lexapro [facility] [address]-44 20 MG Orally Once a day January 24, 2015 1 tablet every AM Zofran ODT [facility] [address]-58 4 MG Orally every 6 hours December 12, 2015 one tab every 6 hours as needed for nausea/vomiting. Bentley Goyal [facility] [address]-08 100 MG Orally Three times a day Mar 22, 2016 1 capsule as needed for cough/congestion Seroquel XR [facility] [address]-98 300 MG Orally Once a day 1 tablet in the evening Meclizine HCl [facility] [address]-52 25 MG Orally every 8 hours as needed for vertigo. Mar 28, 2016 1 tablet as needed for vertigo symptoms Procedures Procedure Coding System Code Date OFFICE VISIT, EST-LOW COMPLEXITY (15 MIN.) CPT-4 19018 May 13, 2016 Vital Signs Date/Time: May 13, 2016 Cardiac Monitoring Heart Rate 86 /min Temperature 97.6 F Weight 241.8 lbs Oximetry 97 % Respiratory Rate 16 /min Blood Pressure Diastolic 78 mm Hg Blood Pressure Systolic 128 mm Hg Results No Known Results Summary Purpose [employer] Submission
--- OUTSIDE RECORDS SUMMARY | 2016-10-16 18:10 | XMS REPORT | Continuity of Care Document ---
Author Author [facility] Organization [facility] Address Unknown Phone Unavailable Care Team Providers Care Commercial Collector Name Role Phone FERNANDO REID MD Primary Care Physician [phone] Insurance Providers Payer Name Policy Number Subscriber Name Relationship [facility] [id number] Tia Young 19 Self Advance Directives Directive [...] RC NEEDED 02/14/10 03/04/10 Discontinued [Saline Nasal [place]] NEEDED 02/14/10 03/04/10 Discontinued [Sennalax-S Tabl1 Tab] [...] F (96.8 - 99.1) Temperature (Calculated Celsius) 37.35921 degrees C (36.0 - 37.3) Temperature Source [...] 12, 2014 8:34pm LAB TEST FORM REQUEST [id number] - Lipase July 31, 2013 3:55am 92 [...] 20, 2014 5:05am 7.4 % N 0-9.0 VR-Epq-Z-Type Natriuretic Peptide June 22, 2012 12:28pm 53 [...] specimen been collected /obtained? Y Urine Specific [place] July 31, 2013 4:32am 1.015 - Has [...] Stain Elbow-Right August 12, 2014 6:25pm Name: TIA YOUNG #: [id number] : 1980 Sex: F Loc / Svc: SRG DOS: 08/15/14 Signed Report #: [id number] DIAGNOSTIC IMAGING REPORT TYPE OF EXAM: ELBOW [...] 08/12/14 Encounters Encounter Location Date/Time Discharged Inpatient [facility] 08/16/14 8:16pm Registered Clinic [facility] 08/12/14 8:14pm Recent Diagnosis Cellulitis of right upper extremity Cellulitis of right upper extremity Acute pain in joint Nausea Cerebral palsy Depression Scoliosis Failure of outpatient treatment Hypokalemia
--- OUTSIDE RECORDS SUMMARY | 2016-10-16 18:11 | XMS REPORT | Continuity of Care Document ---
Author Author [facility] Organization [facility] Address Unknown Phone Unavailable Allergies Active Description [...] Status Pt. Type Provider Facility Loc./Unit Complaint [id number] 10/11/2013 12:48:00 10/11/2013 23 :59:59 [facility] Outpatient
--- NOTE | 2016-10-16 18:12 | ERPDOC ---
Departure Disposition Decision Date: Oct 16, 2016 Disposition Decision Time: 19:19 Disposition: 07 AGAINST MEDICAL ADVICE Impression Impression Impression: Primary Impression: Abdominal pain, left lower quadrant Severity: Severe Condition: Improved Seen By: Physician only Referrals: EMILI DOUGHERTY DO (PCP) Problems/Meds/Labs Reviewed?: Yes Medications reviewed and manag: Yes Follow up care ordered?: Yes Mental Status: Alert, Oriented HPI - Abdominal Pain General Chief Complaint: Abdominal Pain Stated Complaint: SEVERE ABD PAIN/NAUSEA Time Seen by Provider: 17:50 Source: family History/Exam Limitations: no limitations HPI - Abdominal Pain Initial Comments Patient has 2 days of constant left-sided abdominal pain, left mid to left lower quadrant. Also sister with nausea, no vomiting no diarrhea no dysuria and no vaginal bleeding. Patient was seen by Dr. Richard, her primary care physician and [place] [facility] today, and he was fearful that she might have diverticulitis and so they sent her to the ER for lab and CT evaluation. Patient states that she's never had a kidney stone to her knowledge, however listed on the patient's past medical history for kidney stones and urinary tract infections. Occurred At: home Onset: Rapid Quality: cramping, sharpness Location: LLQ, left flank Radiation: no radiation Associated Symptoms: nausea/vomiting, DENIES: back pain, chest pain, diaphoresis, fatigue, fever/chills, headache, heartburn, rash, shortness of breath, swelling/mass in abdomen, syncope, weakness Hx of Similar Symptoms: No Allergies: Coded Allergies: codeine (Verified Allergy, Unknown, 10/16/16) lorazepam (Verified Allergy, Unknown, 10/16/16) meperidine HCl (Verified Allergy, Unknown, 10/16/16) Past History Past Medical History ENMT: allergies, dental problems, vision problems GI: GERD, gallbladder disease Female: UTI, kidney stones Neurological: chronic disability, migraines Musculoskeletal: back pain Psychological: depression Surgical History General: gallbladder Reproductive/: tubal ligation, uterine ablation Joint: hip Family History Family PMH: FOUND: diabetes Vaccines Hx Influenza Vaccination: No Hx Pneumococcal Vaccination: Yes (YEAR UNKNOWN) Hx Tetanus, Diptheria, Pertuss: Yes (08/2008) Review of Systems Constitutional Constitutional: DENIES: appetite decrease, appetite increase, chills, dizziness , fever, weakness ENMT Ears: DENIES: pain Hearing: DENIES: hearing loss, tinnitus Balance: DENIES: vertigo Mouth/Throat: DENIES: change in swallowing, change in voice, hoarsness, painful swallowing, sore throat Cardiovascular Cardiac: DENIES: chest pain, dyspnea on exertion Rhythm/Rate: DENIES: irregular beat, palpitations, tachycardia Vascular: DENIES: pedal edema Pulmonary Respiratory: DENIES: cough, dyspnea, pleuritic chest pain GI Upper Abdomen: nausea, pain, DENIES: dysphagia, heartburn/indigestion, vomiting Lower Abdomen: pain, DENIES: blood in stool, constipation, diarrhea General: DENIES: burning, dysuria, frequency, pain, urgency Musculoskeletal General: DENIES: cramps, joint pain, joint swelling, pain, weakness Integumentary Skin: DENIES: rash, sores Neurological General: DENIES: headache, numbness, tingling, vertigo, weakness Psychiatric Psychiatric: DENIES: anxiety, depression, nervousness Physical Exam General General Nourishment: well nourished, well developed, appears stated age, obese General Body Habitus: disheveled (routinely) Vitals and Pain First Documented Vital Signs Date Time Temp Pulse Resp B/P Pulse Ox O2 Delivery O2 Flow Rate FiO2 10/16/16 16:23 98.5 102 16 141/97 97 Room Air Weight: Kilograms: 81.800 Height (feet): 5 Height (inches): 6.00 Triage Pain Scale: RN VS reviewed by Provider: Yes Normal Exams: Head: Normocephalic w/o trauma Eyes: Pupils are PERRLA w/ EOMI, No scleral icterus, irritation, or foreign bodies noted ENMT: No facial trauma, nasal exudates, pharyngeal erythema, or exudates are noted Neck: Full range of motion, without adenopathy, JVD, bruits or thyromegaly Chest/Resp: Clear all vaz, with good airflow, and symmetry bilaterally CV: Regular rate and rhythm, without murmur or gallop, Pulses 2+ all extremities, capillary refill, <2 seconds all ext., no pedal edema noted Lymphatic: No lymphadenopathy, or lymphedema noted Musculoskeletal: No tenderness, or deformity noted, good range of motion, all extremities Integumentary: No rashes, hives, or bruising noted, hair and nails, without abnormality Neurologic: Patient is alert, and oriented, cranial nerves, motor/sensory/ cerebellar, exams w/o gross deficits, to observation Psychiatric: Patient exhibits, appropriate attention, emotion and affect Abdomen (brief) Abdominal Brief: FOUND: bowel normo active x4, soft, tender (moderate left flank to left lower quadrant tenderness, no guarding no rebounding), NOT FOUND: distended, hepatosplenomegaly, pulsatile mass Progress Results/Orders Orders Procedure Category Date Status Time Iv Lock (Ed Only) EDM 10/16/16 Transmitted 18:02 Cbc W/Auto LAB 10/16/16 Complete Diff-Reflex Manual Cmp - Comprehensive LAB 10/16/16 Complete Metabolic Lipase LAB 10/16/16 Complete Ua, Dip Wreflex LAB 10/16/16 Logged Micro[employer] Teacher 18:02 LAB 10/16/16 Logged Qualitative, Urine 18:02 Ct Abd/Pelvis CT 10/16/16 Logged W/Contrast Only Ketorolac (Toradol) PHA 10/16/16 Complete 18:15 Prochlorperazine PHA 10/16/16 Complete (Compazine) 18:15 Normal Saline (Normal PHA 10/16/16 Complete Saline Iv) 18:15 Iohexol (Omnipaque) PHA 10/16/16 Complete 18:54 Normal Saline (Ns) PHA 10/16/16 Complete 18:54 Saline Flush (Iv PHA 10/16/16 Complete Flush) 18:54 Lab Results Laboratory Tests Test 10/16/16 18:21 White Blood Count 11.8T/MM3 Red Blood Count 5.09M/MM3 Hemoglobin 13.3GM/DL Hematocrit 40.9% Mean Corpuscular Volume 80.4UM3 Mean Corpuscular Hemoglobin 26.1UUG Mean Corpuscular Hemoglobin Concent 32.5GM/DL RDW Standard Deviation 45.5FL Platelet Count 324T/MM3 Mean Platelet Volume 9.1UM3 Immature Granulocyte % (Auto) 0.3% Neutrophils (%) (Auto) 75.9% Lymphocytes (%) (Auto) 18.1% Monocytes (%) (Auto) 5.1% Eosinophils (%) (Auto) 0.3% Basophils (%) (Auto) 0.3% Absolute Immature Granulocyte (auto 0.03T/MM3 Absolute Neutrophils (auto) 9.0T/MM3 Absolute Lymphocytes (auto) 2.1T/MM3 Absolute Monocytes (auto) 0.6T/MM3 Absolute Eosinophils (auto) 0.0T/MM3 Absolute Basophils (auto) 0.0T/MM3 Turbidity < 20 Sodium Level 143MEQ/L Potassium Level 4.0MEQ/L Chloride Level 106MEQ/L Carbon Dioxide Level 25MEQ/L Anion Gap 12MEQ/L Blood Urea Nitrogen 17.0MG/DL Creatinine 1.0MG/DL Glomerular Filtration Rate Calc 63 BUN/Creatinine Ratio 17RATIO Glucose Level 101MG/DL Calculated Osmolality 277MOSM/KG Calcium Level 9.8MG/DL Total Bilirubin 0.80MG/DL Icterus Index < 2 Aspartate Amino Transf (AST/SGOT) 30U/L Alanine Aminotransferase (ALT/SGPT) 45U/L Alkaline Phosphatase 95U/L Total Protein 8.2G/DL Albumin 4.5G/DL Globulin 3.7G/DL Albumin/Globulin Ratio 1.2RATIO Lipase 115U/L Chemistry Specimen Hemolysis < 15 Medications Current ED Medications Ketorolac Tromethamine (Toradol) 30 mg O ONCE IV Last administered on 18:25; Start 10/16/16 at 18:15; Stop 10/16/16 at 18:16; Status DC Prochlorperazine Edisylate 10 mg 10 mg O ONCE IV Last administered on 18:23; Start 10/16/16 at 18:15; Stop 10/16/16 at 18:16; Status DC Sodium Chloride (Normal Saline IV) 1,000 ml @ 0 mls/hr Q0M ONCE IV Last administered on 10/16/16 18:26; Start 10/16/16 at 18:15; Stop 10/16/16 at 18:16 ; Status DC Iohexol 1 bottle 1 bottle STK-MED ONCE .ROUTE ; Start 10/16/16 at 18:54; Stop at 18:55; Status DC Sodium Chloride (NS) 100 ml @ As Directed STK-MED ONCE .ROUTE ; Start 10/16/16 at 18:54; Stop 10/16/16 at 18:55; Status DC Sodium Chloride (Iv Flush) 10 ml STK-MED ONCE .ROUTE ; Start 10/16/16 at 18:54; Stop 10/16/16 at 18:55; Status DC Progress Progress Patient given Toradol 30 mg, Compazine 10 mg, 1 L normal saline IV fluid bolus - patient felt much better, and elected to leave AGAINST MEDICAL ADVICE rather than stay for continued evaluation and CT scan. MARTINEZ JENSEN MD Oct 16, 2016 18:12
[2016-10-16] MEDS ORDERED: NORMAL SALINE 1,000 ML IV ONE (18:15)
[2016-10-16] MEDS ORDERED: PROCHLORPERAZINE 10mg/2ml INJECTION IV ONE (18:15)
[2016-10-16] MEDS ORDERED: KETOROLAC 30mg/ml INJECTION IV ONE (18:15)
[2016-10-16 18:30] LABS: BASOPHILS % (AUTO) 0.3 % (0-2); EOSINOPHILS % (AUTO) 0.3 % (0-4); HCT - HEMATOCRIT 40.9 % (36-46); HGB - HEMOGLOBIN 13.3 GM/DL (12-16); IMMATURE GRANULOCYTE # (AUTO) 0.03 T/MM3 (0.00-0.03); IMMATURE GRANULOCYTE % (AUTO) 0.3 % (0.0-0.5); LYMPHOCYTES # (AUTO) 2.1 T/MM3 (1-4.8); LYMPHOCYTES % (AUTO) 18.1 % (23-45); MEAN CORPUSCULAR HGB 26.1 UUG (26-34); MEAN CORPUSCULAR HGB CONC(MCHC 32.5 GM/DL (31-37); MEAN CORPUSCULAR VOLUME 80.4 UM3 (80-100); MEAN PLATELET VOLUME 9.1 UM3 (9.4-12.4); MONOCYTES # (AUTO) 0.6 T/MM3 (0-0.8); MONOCYTES % (AUTO) 5.1 % (0-9.0); NEUTROPHILS % (AUTO) 75.9 % (33-66); RED BLOOD COUNT 5.09 M/MM3 (4.00-5.20); WBC - WHITE BLOOD COUNT 11.8 T/MM3 (4.5-11.0)
--- NOTE | 2016-10-16 18:30 | NUR ---
ADVISED PT THAT A URINE SAMPLE IS NEEDED AND PT STATES SHE IS UNABLE TO GIVE A URINE SAMPLE
[2016-10-16 18:36] LABS: ALBUMIN 4.5 G/DL (3.5-5.0); ALBUMIN/GLOBULIN RATIO 1.2 RATIO (1.1-2.2); ALKALINE PHOSPHATASE 95 U/L (38-126); ALT (SGPT) 45 U/L (9-52); ANION GAP 12 MEQ/L (5-15); AST (SGOT) 30 U/L (14-36); BUN/CREATININE RATIO 17 RATIO (6-26); CALCIUM 9.8 MG/DL (8.4-10.2); CHLORIDE 106 MEQ/L (98-107); CO2 - CARBON DIOXIDE 25 MEQ/L (22-30); GLOMERULAR FILTRATION RATE 63; GLUCOSE 101 MG/DL (65-110); SODIUM 143 MEQ/L (134-144); TOTAL PROTEIN 8.2 G/DL (6.3-8.2)
[2016-10-16 18:44] LABS: LIPASE 115 U/L (23-300)
[2016-10-16] MEDS ORDERED: NORMAL SALINE 0 ML ONE (18:54)
[2016-10-16] MEDS ORDERED: SALINE FLUSH 10ml SYRINGE ONE (18:54)
[2016-10-16] MEDS ORDERED: IOHEXOL 300 MG/ML 100ml INJECTION ONE (18:54)
[2016-10-16] MEDS ORDERED: BUSP10TA3 PO (19:05)
[2016-10-16] MEDS ORDERED: QUET400T54 PO (19:07)
[2016-10-16] MEDS ORDERED: ACET325T51 PO (19:08)
[2016-10-16] MEDS ORDERED: BENZ-16 PO (19:10)
[2016-10-16] MEDS ORDERED: HYDR-3841 PO (19:13)
[2016-10-16] MEDS ORDERED: DOCU100C19 PO (19:13)
[2016-10-16] MEDS ORDERED: HYDR30CR53 TOP (19:13)
[2016-10-16] MEDS ORDERED: MECL-103 PO (19:13)
[2016-10-16] MEDS ORDERED: MAG-76 PO (19:15)
--- NOTE | 2016-10-16 19:15 | NUR ---
PT LEAVES AMA PT STATES THAT IT IS TAKING TOO LONG FOR TREATMENT
[2016-10-16] MEDS ORDERED: ONDA4TAB10 PO (19:17)
[2016-10-16] MEDS ORDERED: GUAI100L60 PO (19:17)
[2016-10-16 19:25] VITALS: BP 141/97; PULSE 102; RESP 16; TEMP 98.5; O2SAT 97
== END 2016-10-16 19:25 | disposition left against medical advice (07) ==
LOC: ED 16:14
DX: R10.32 Left lower quadrant pain (principal); R11.0 Nausea
CPT/HCPCS: 80053; 83690; 85025; 96361; 96374; 96375; 99283; J0780; J1885; J7030

== ENCOUNTER 2016-12-17 12:38 | Emergency (ER) | payer MEDICAID ==
[~2016-12-17] VITALS: Ht 167.6 cm; Wt 100.0 kg
[~2016-12-17 12:38] MED LIST changes: -ACET-2161 PO; +ACET325T51 PO; +BENZ-16 PO; +BUSP10TA3 PO; -BUSP5TAB3 PO; -DIPH25TA23 PO; +DOCU100C19 PO; +GUAI100L60 PO; +HYDR-3841 PO; +HYDR30CR53 TOP; -IBUP-1547 PO; -LOPE2TAB8 PO; +MAG-76 PO; +MECL-103 PO; +ONDA4TAB10 PO; -PROM25TA7 PO; -QUET300T3 PO; +QUET400T54 PO
[2016-12-17 12:42] VITALS: TEMP 98.9; Ht 167.6 cm; Wt 100.0 kg
--- OUTSIDE RECORDS SUMMARY | 2016-12-17 12:46 | XMS REPORT | Continuity of Care Document ---
Author Author [facility] Organization [facility] Address Unknown Phone Unavailable Care Team Providers Care Communications Technician Name Role Phone FERNANDO REID MD Primary Care Physician [phone] Insurance Providers Payer Name Policy Number Subscriber Name Relationship [facility] [id number] Tia Young 18 Self Advance Directives Directive [...] RC NEEDED 02/14/10 03/04/10 Discontinued [Saline Nasal [place]] NEEDED 02/14/10 03/04/10 Discontinued [Sennalax-S Tabl1 Tab] [...] F (96.8 - 99.1) Temperature (Calculated Celsius) 37.94618 degrees C (36.0 - 37.3) Temperature Source [...] 12, 2014 8:34pm LAB TEST FORM REQUEST [id number] - Lipase July 31, 2013 3:55am 92 [...] 20, 2014 5:05am 7.4 % N 0-9.0 GI-Rql-L-Type Natriuretic Peptide June 22, 2012 12:28pm 53 [...] specimen been collected /obtained? Y Urine Specific [place] July 31, 2013 4:32am 1.015 - Has [...] 12, 2014 6:25pm Name: TIA YOUNG #: [id number] : 1980 Sex: F Loc / Svc: SRG DOS: 08/15/14 Signed Report #: [id number] DIAGNOSTIC IMAGING REPORT TYPE OF EXAM: ELBOW [...] 08/12/14 Encounters Encounter Location Date/Time Discharged Inpatient [facility] 08/16/14 8:16pm Registered Clinic [facility] 08/12/14 8:14pm Recent Diagnosis Cellulitis of right upper extremity Cellulitis of right upper extremity Acute pain in joint Nausea Cerebral palsy Depression Scoliosis Failure of outpatient treatment Hypokalemia
--- OUTSIDE RECORDS SUMMARY | 2016-12-17 12:46 | XMS REPORT | Continuity of Care Document ---
Author Author [facility] Organization [facility] Address Unknown Phone Unavailable Care Team Providers Care Linotype Operator Name Role Phone EMILI DOUGHERTY DO Primary Care Physician [phone] Insurance Providers Guarantor Tia Young Address [address] [place] [address] Email DENIED/10-16-16 Payer [facility] Policy Number [id number] Subscriber's Name Tia Young Relationship 18 Self Effective Date 16 Expiration Date 16 Advance Directives Directive Response Recorded Date/Time Advanced Directives Type None 10/16/16 5:40pm Chief Complaint and Reason for Visit Chief Complaint Abdominal Pain Reason for Visit [id number] Problems Active Problems Medical Problem Onset Date [...] Acute Past Problems Medical Problem Onset Date Abdominal pain, left lower quadrant Unknown Bilateral hip pain Unknown Fall Unknown Lower back pain Unknown Nausea and vomiting Unknown Medications Current Home Medications Medication Dose Units Route Directions Days Qty Instructions Start Date Acetaminophen 325 Mg Tablet 650 Mg Oral Every 4-6 Hours as needed for Pain 10/16/16 Albuterol Sulfate (Proair Hfa 90 Mcg/Actuation) 8.5 Gm Hfa.aer.ad 1-2 Puff Inhalation Every 4 Hours as needed for Cough 03/06/16 Benzonatate 100 Mg Capsule 100 Mg Oral Three Times A Day as needed for Cough 10/16/16 Buspirone Hcl 10 Mg Tablet 10 Mg Oral Three Times A Day 10/16/16 Cyclobenzaprine Hcl 5 Mg Tablet 5 Mg Oral Every 12 Hours as needed for Muscle Spasm 06/19/15 Docusate Sodium (Doc-Q-Lace) 100 Mg Capsule 100 Mg Oral Daily as needed for Constipation 10/16/16 Escitalopram Oxalate 20 Mg Tablet 20 Mg Oral Daily 06/19/15 Guaifenesin (Siltussin Sa) 100 Mg/5 Ml Liquid 10-20 Ml Oral Every 4 Hours as needed for Cough 10/16/16 Hydrocortisone 30 Gm Cream..g. 1 Applic Topically Four Times Daily as needed for Itching 10/16/16 Hydroxyzine Pamoate 25 Mg Capsule 25 Mg Oral Three Times A Day as needed for Anxiety 10/16/16 Loratadine 10 Mg Tablet 10 Mg Oral Daily 11/01/12 Mag Hydrox/Al Hydrox/Simeth (Antacid Liquid) 355 Ml Oral.susp 10-20 Ml Oral Four Times Daily as needed for Indigestion 10/16/16 Magnesium Hydroxide (Milk Of Magnesia) 400 Mg/5 Ml Oral.susp 30-60 Ml Oral Daily as needed for Constipation 08/04/15 Meclizine Hcl 25 Mg Tablet 25 Mg Oral Every 8 Hours as needed for Vertigo 10/16/16 Multivitamin (Multi Vitamin Daily) 1 Each Tablet 1 Tab Oral Daily 03/20/15 Omeprazole 40 Mg Capsule.dr 40 Mg Oral Daily 03/20/15 Ondansetron (Ondansetron Odt) 4 Mg Tab.rapdis 4 Mg Oral Every 6 Hours as needed for Nausea &/Or Vomiting 10/16/16 Quetiapine Fumarate (Quetiapine Fumarate Er) 400 Mg Tab.er.24h 400 Mg Oral Every Evening 10/16/16 Tolterodine Tartrate (Tolterodine Tartrate Er) 4 Mg [...] Rectal As Needed 02/14/10 Discontinued Saline Nasal [place] , As Needed 02/14/10 Discontinued Sennalax-S Tabl1 [...] Onset Date Status Hx Substance Use No 10/16/2016 5:55pm Not Applicable Not Applicable Hx Alcohol Use Yes 10/16/2016 5:55pm Not Applicable Not Applicable Has the pt used tobacco in the last 12 months No 06/16/2015 1:03pm Not Applicable Not Applicable Tobacco Usage smoke 08/15/2014 6:54pm Not Applicable Not Applicable Query Response Start Date Stop Date Smoking Status Never smoker Hospital Discharge Instructions No hospital discharge instructions. Plan of Care Discharge Date 10/16/16 7:25pm Disposition 07 AGAINST MEDICAL ADVICE Condition at Discharge Improved Prescriptions See Medication Section Referrals EMILI DOUGHERTY DO Address: [address] [place] [address] [phone] Functional Status No functional status results. Allergies, Adverse Reactions, Alerts Allergen Type Severity Reaction Status Last Updated meperidine HCl Allergy Unknown Active 10/16/16 Lorazepam Allergy Unknown Active 10/16/16 Codeine Allergy Unknown Active 10/16/16 Immunizations Query Response on File Recorded Date/Time Hx Influenza Vaccination No 06/16/15 1:03pm Hx Pneumococcal Vaccination Y YEAR UNKNOWN 06/16/15 1:03pm Hx Tetanus, Diptheria, Pertussis Y 08/200803/20/15 3:34pm Hx Influenza Vaccination No 06/16/15 1:03pm Hx Tetanus, Diptheria, Pertussis Y 08/200803/20/15 3:34pm Influenza Vaccine Hx NO 10/16/16 5:55pm Vital Signs Acute Vital Signs Vital Response Date/Time Temperature (Fahrenheit) 98.5 deg F (96.8 - 99.1) 10/16/2016 7:25pm Temperature (Calculated Celsius) 36.52693 degrees C (36.0 - 37.3) 10/16/2016 7:25pm Pulse Rate (adult) 102 bpm (60 - 100) 10/16/2016 7:25pm Respiratory Rate 16 breaths/min (10 - 20) 10/16/2016 7:25pm O2 Sat by Pulse Oximetry 97 % (90 - 100) 10/16/2016 7:25pm Blood Pressure 141/97 mm Hg 10/16/2016 7:25pm Height (Feet) 5 feet 10/16/2016 4:23pm Height (Inches) 6.00 inches 10/16/2016 4:23pm Weight (Kilograms) 81.800 kg 10/16/2016 4:23pm Body Mass Index (BMI) 29.0 10/16/2016 4:23pm Results Laboratory Results Test Name Result Units Flags Reference Collection Date/Time Result Date/ Time Comments White Blood Count 11.8 T/MM3 H 4.5-11.0 10/16/2016 6:21pm 10/16/2016 6: 30pm Red Blood Count 5.09 M/MM3 4.00-5.20 10/16/2016 6:21pm 10/16/2016 6: 30pm Hemoglobin 13.3 GM/DL 12-16 10/16/2016 6:10/16/2016 6:30pm Hematocrit 40.9 % 36-46 10/16/2016 6:10/16/2016 6:30pm Mean Corpuscular Volume 80.4 UM3 80-100 10/16/2016 6:10/16/2016 6: 30pm Mean Corpuscular Hemoglobin 26.1 UUG 26-34 10/16/2016 6:2016 6:30pm Mean Corpuscular Hemoglobin Concent 32.5 GM/DL 31-37 10/16/2016 6:10/16/2016 6:30pm RDW Standard Deviation 45.5 FL 36.9-50.2 10/16/2016 6:10/16/2016 6 :30pm Platelet Count 324 T/MM3 130-400 10/16/2016 6:pm 10/16/2016 6:30pm Mean Platelet Volume 9.1 UM3 L 9.4-12.4 10/16/2016 6:10/16/2016 6: 30pm Neutrophils (%) (Auto) 75.9 % H 33-66 10/16/2016 6:10/16/2016 6: 30pm Lymphocytes (%) (Auto) 18.1 % L 23-45 10/16/2016 6:10/16/2016 6: 30pm Monocytes (%) (Auto) 5.1 % 0-9.0 10/16/2016 6:pm 10/16/2016 6:30pm Eosinophils (%) (Auto) 0.3 % 0-4 10/16/2016 6:10/16/2016 6:30pm Basophils (%) (Auto) 0.3 % 0-2 10/16/2016 6:10/16/2016 6:30pm Immature Granulocyte % (Auto) 0.3 % 0.0-0.5 10/16/2016 6:2016 6:30pm Absolute Neutrophils (auto) 9.0 T/MM3 H 1.8-7.7 10/16/2016 6:2016 6:30pm Absolute Lymphocytes (auto) 2.1 T/MM3 1-4.8 10/16/2016 6:2016 6:30pm Absolute Monocytes (auto) 0.6 T/MM3 0-0.8 10/16/2016 6:10/16/2016 6:30pm Absolute Eosinophils (auto) 0.0 T/MM3 0-0.5 10/16/2016 6:2016 6:30pm Absolute Basophils (auto) 0.0 T/MM3 0-0.2 10/16/2016 6:10/16/2016 6:30pm Absolute Immature Granulocyte (auto 0.03 T/MM3 0.00-0.03 10/16/2016 6: 10/16/2016 6:30pm Icterus Index < 2 0-7 10/16/2016 6:10/16/2016 6:36pm Chemistry Specimen Hemolysis < 15 0-25 10/16/2016 6:10/16/2016 6 :36pm 0-25: Specimen Exhibited No Hemolysis. Turbidity < 20 0-20 10/16/2016 6:10/16/2016 6:36pm Sodium Level 143 MEQ/L 134-144 10/16/2016 6:10/16/2016 6:36pm Potassium Level 4.0 MEQ/L 3.6-5 10/16/2016 6:10/16/2016 6:36pm Chloride Level 106 MEQ/L 98-107 10/16/2016 6:10/16/2016 6:36pm Carbon Dioxide Level 25 MEQ/L 22-30 10/16/2016 6:10/16/2016 6: 36pm Anion Gap 12 MEQ/L 5-10/16/2016 6:10/16/2016 6:36pm Blood Urea Nitrogen 17.0 MG/DL 710/16/2016 6:10/16/2016 6: 36pm Creatinine 1.0 MG/DL 0.7-1.2 10/16/2016 6:10/16/2016 6:36pm BUN/Creatinine Ratio 17 RATIO 01-2010/16/2016 6:10/16/2016 6:36pm Glomerular Filtration Rate Calc 63 10/16/2016 6:10/16/2016 6: 36pm Glucose Level 101 MG/DL 65-110 10/16/2016 6:10/16/2016 6:36pm Calculated Osmolality 277 MOSM/KG 261-280 10/16/2016 6:10/16/2016 6:36pm Calcium Level 9.8 MG/DL 8.4-10.2 10/16/2016 6:10/16/2016 6:36pm Total Bilirubin 0.80 MG/DL 0.20-1.30 10/16/2016 6:10/16/2016 6: 36pm Alkaline Phosphatase 95 U/L 38-126 10/16/2016 6:10/16/2016 6:36pm Total Protein 8.2 G/DL 6.3-8.2 10/16/2016 6:10/16/2016 6:36pm Albumin 4.5 G/DL 3.5-5.0 10/16/2016 6:10/16/2016 6:36pm Globulin 3.7 G/DL H 2.4-3.6 10/16/2016 6:10/16/2016 6:36pm Albumin/Globulin Ratio 1.2 RATIO 1.1-2.2 10/16/2016 6:21pm 10/16/2016 6 :36pm Aspartate Amino Transf (AST/SGOT) 30 U/L 14-36 10/16/2016 6:21pm 2016 6:36pm Alanine Aminotransferase (ALT/SGPT) 45 U/L 9-52 10/16/2016 6:21pm 10/16 6:36pm Lipase 115 U/L 23-300 10/16/2016 6:21pm 10/16/2016 6:44pm Procedures No known history of procedures. Encounters Encounter Location Arrival/Admit Date Discharge/Depart Date Attending Provider Departed Emergency Room [facility] 10/16/16 4:14pm 10/16/16 7: 25pm MARTINEZ JENSEN MD Recent Diagnosis
--- OUTSIDE RECORDS SUMMARY | 2016-12-17 12:48 | XMS REPORT | Continuity of Care Document ---
Author Author [facility] Organization [facility] Address Unknown Phone Unavailable Allergies Active Description [...] Status Pt. Type Provider Facility Loc./Unit Complaint [id number] 10/11/2013 12:48:00 10/11/2013 23 :59:59 [facility] Outpatient
--- NOTE | 2016-12-17 12:59 | ERPDOC ---
Departure Disposition Decision Date: December 17, 2016 Disposition Decision Time: 13:48 (SHARRI PALMA APRN) Disposition: 01 DISCHARGED HOME, SELF-CARE Impression Impression (SHARRI PALMA APRN) Impression: Primary Impression: Heart palpitations Severity: Moderate (JEISON PALMAA N PRODUCTION POSTING CLERK) Condition: Stable Seen By: Mid-level only (SHARRI PALMA APRN) Referrals: EMILI DOUGHERTY DO (PCP) Patient Instructions: Palpitations (ED) Problems/Meds/Labs Reviewed?: Yes Medications reviewed and manag: Yes (SHARRI PALMA APRN) Additional Instructions: I do want you to follow up with Dr Dougherty if this continues. You may need to wear a Holter Monitor to catch the palpitations that you are feeling. If you have any further issues/concerns then return to Er for reevaluation. Follow up care ordered?: Yes Mental Status: Alert (SHARRI PALMA APRN) HPI - Cardiac General Stated Complaint: DIZZY, HEART FLUTTERS Time Seen by Provider: 12:45 Source: patient Exam Limitations: no limitations (SHARRI PALMA APRN) Time Seen by Provider: 12:45 (EMMA ACEVES DO) HPI - Cardiac General Initial Comments For the last 2 days she has been having some palpitations off and on. They last about 30 seconds when they come on. She does feel SOA and a little dizzy but is not having any chest pain at all with these. Denies any fever or chills or nausea. Did try to go to her PCP office but she is wheelchair bound and their elevator was out so they sent her to Immediate care and they sent her here as they do not handle cardiac issues. She is in NAD at this time. Occurred At: home Onset/Timing: Gradual Duration: other (Over the last 2 days) Severity: moderate Location: other (no pain) Activities at Onset/Context: none Nitro Today/Relief: no nitro taken today Aspirin Today: unknown Associated Symptoms: shortness of breath (during the episodes), DENIES: chest pain, cough, diaphoresis, fever/chills, headaches, loss of appetite, malaise, nausea/vomiting, rash, seizure, weakness Hx of Similar Symptoms: No (JEISON PALMAA Ned PRODUCTION POSTING CLERK) Allergies: Coded Allergies: codeine (Verified Allergy, Unknown, 12/17/16) lorazepam (Verified Allergy, Unknown, 12/17/16) meperidine HCl (Verified Allergy, Unknown, 12/17/16) Past History Past Medical History ENMT: allergies, dental problems, vision problems GI: GERD, gallbladder disease Female: UTI, kidney stones Neurological: chronic disability, migraines Musculoskeletal: back pain Psychological: depression (NOLD,SHARRI N PRODUCTION POSTING CLERK) Surgical History General: gallbladder Reproductive/: tubal ligation, uterine ablation Joint: hip (NOLD,SHARRI N PRODUCTION POSTING CLERK) Family History Family PMH: FOUND: diabetes (NOLD,SHARRI N PRODUCTION POSTING CLERK) Vaccines Hx Influenza Vaccination: No Hx Pneumococcal Vaccination: Yes (YEAR UNKNOWN) Hx Tetanus, Diptheria, Pertuss: Yes (08/2008) (NOLD,SHARRI N PRODUCTION POSTING CLERK) Social History Smoking Status: Never smoker Substance Use Type: does not use Alcohol Intake: none (NOLD,SHARRI N PRODUCTION POSTING CLERK) Review of Systems Constitutional Constitutional: dizziness, DENIES: chills, fatigue, fever, weakness (NOLD, SHARRI N PRODUCTION POSTING CLERK) Eyes Vision: DENIES: blurring, double vision (NOLD,SHARRI N PRODUCTION POSTING CLERK) ENMT Ears: DENIES: drainage, pain Sinuses: DENIES: congestion, rhinorrhea Mouth/Throat: DENIES: painful swallowing, scratchy throat, sore throat (NOLD, SHARRI N PRODUCTION POSTING CLERK) Cardiovascular Cardiac: DENIES: chest pain, dyspnea on exertion, orthopnea Rhythm/Rate: palpitations, DENIES: irregular beat Vascular: DENIES: pedal edema, unilateral swelling (NOLD,SHARRI N PRODUCTION POSTING CLERK) Pulmonary Respiratory: DENIES: cough, dyspnea, sputum (NOLD,SHARRI N PRODUCTION POSTING CLERK) GI Upper Abdomen: DENIES: nausea, pain, vomiting Lower Abdomen: DENIES: constipation, diarrhea, pain (NOLD,SHARRI N PRODUCTION POSTING CLERK) Integumentary Skin: DENIES: rash (NOLD,SHARRI N PRODUCTION POSTING CLERK) Neurological General: DENIES: headache, numbness, tingling, weakness (NOLD,SHARRI N PRODUCTION POSTING CLERK) Physical Exam General General Nourishment: well nourished, well developed, appears stated age, no acute distress, adult General Body Habitus: well groomed (SHARRI PALMA APRN) Vitals and Pain First Documented Vital Signs Date Time Temp Pulse Resp B/P Pulse Ox O2 Delivery O2 Flow Rate FiO2 12/17/16 12:42 98.9 98 16 140/81 99 Room Air () Vitals and Pain Weight: Kilograms: Height (feet): 5 Height (inches): 6.00 Triage Pain Scale: (SHARRI PALMA APRN) RN VS reviewed by Provider: Yes (SHARRI PALMA APRN) Normal Exams: Eyes: Pupils are PERRLA w/ EOMI, No scleral icterus, irritation, or foreign bodies noted ENMT: No facial trauma, nasal exudates, pharyngeal erythema, or exudates are noted Neck: Full range of motion, without adenopathy, JVD, bruits or thyromegaly Chest/Resp: Clear all vaz, with good airflow, and symmetry bilaterally CV: Regular rate and rhythm, without murmur or gallop, Pulses 2+ all extremities, capillary refill, <2 seconds all ext., no pedal edema noted Abdomen: Bowel sounds positive, soft, non-tender, non-distended, no hepatosplenomegaly, masses or bruits noted Lymphatic: No lymphadenopathy, or lymphedema noted Integumentary: No rashes, hives, or bruising noted Neurologic: Patient is alert, and oriented Psychiatric: Patient exhibits, appropriate attention, emotion and affect (SHARRI PALMA APRN) Differential Diagnoses Considering: Anxiety/Panic, Atrial Fibrillation, Bradycardia, PSVT, Other (PVC) (SHARRI PALMA APRN) Progress Results/Orders Orders Procedure Category Date Status Time EKG EKG 12/17/16 Taken Cbc W/Auto LAB 12/17/16 Complete Diff-Reflex Manual Bmp - Basic Metabolic LAB 12/17/16 Complete Panel Troponin I W LAB 12/17/16 Complete Hemolysis Index () Lab Results Laboratory Tests Test 12/17/16 13:07 White Blood Count 8.7T/MM3 Red Blood Count 4.80M/MM3 Hemoglobin 12.4GM/DL Hematocrit 39.0% Mean Corpuscular Volume 81.3UM3 Mean Corpuscular Hemoglobin 25.8UUG Mean Corpuscular Hemoglobin Concent 31.8GM/DL RDW Standard Deviation 45.7FL Platelet Count 310T/MM3 Mean Platelet Volume 8.8UM3 Immature Granulocyte % (Auto) 0.1% Neutrophils (%) (Auto) 72.7% Lymphocytes (%) (Auto) 20.8% Monocytes (%) (Auto) 5.5% Eosinophils (%) (Auto) 0.6% Basophils (%) (Auto) 0.3% Absolute Immature Granulocyte (auto 0.01T/MM3 Absolute Neutrophils (auto) 6.4T/MM3 Absolute Lymphocytes (auto) 1.8T/MM3 Absolute Monocytes (auto) 0.5T/MM3 Absolute Eosinophils (auto) 0.1T/MM3 Absolute Basophils (auto) 0.0T/MM3 Turbidity < 20 Sodium Level 145MEQ/L Potassium Level 4.1MEQ/L Chloride Level 105MEQ/L Carbon Dioxide Level 25MEQ/L Anion Gap 15MEQ/L Blood Urea Nitrogen 15.0MG/DL Creatinine 0.8MG/DL Glomerular Filtration Rate Calc 82 BUN/Creatinine Ratio 19RATIO Glucose Level 94MG/DL Calculated Osmolality 280MOSM/KG Calcium Level 9.7MG/DL Icterus Index < 2 Troponin I < 0.012ng/ml Chemistry Specimen Hemolysis < 15 () Progress Progress CBC, BMP, and troponin today is normal. EKG shows NS with rate of 97, no St elevation or ectopy. 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 Will go ahead and let her go home today. Have her follow up with her primary care provider for reevaluation if any further concerns. (SHARRI PALMA APRN) SHARRI PALMA APRN December 17, 2016 12:59 NOVEMBER,EMMA Cloud DO December 17, 2016 16:31
--- OUTSIDE RECORDS SUMMARY | 2016-12-17 13:06 | XMS REPORT | Continuity of Care Document ---
Author Author [facility] Organization [facility] Address Unknown Phone Unavailable Care Team Providers Care Core Composer Machine Tender Name Role Phone FERNANDO REID MD Primary Care Physician [phone] Insurance Providers Payer Name Policy Number Subscriber Name Relationship [facility] [id number] Tia Young 19 Self Advance Directives Directive [...] RC NEEDED 02/14/10 03/04/10 Discontinued [Saline Nasal [place]] NEEDED 02/14/10 03/04/10 Discontinued [Sennalax-S Tabl1 Tab] [...] F (96.8 - 99.1) Temperature (Calculated Celsius) 37.42557 degrees C (36.0 - 37.3) Temperature Source [...] 12, 2014 8:34pm LAB TEST FORM REQUEST [id number] - Lipase July 31, 2013 3:55am 92 [...] 20, 2014 5:05am 7.4 % N 0-9.0 TY-Hqe-C-Type Natriuretic Peptide June 22, 2012 12:28pm 53 [...] specimen been collected /obtained? Y Urine Specific [place] July 31, 2013 4:32am 1.015 - Has [...] 12, 2014 6:25pm Name: TIA YOUNG #: [id number] : 1980 Sex: F Loc / Svc: SRG DOS: 08/15/14 Signed Report #: [id number] DIAGNOSTIC IMAGING REPORT TYPE OF EXAM: ELBOW [...] 08/12/14 Encounters Encounter Location Date/Time Discharged Inpatient [facility] 08/16/14 8:16pm Registered Clinic [facility] 08/12/14 8:14pm Recent Diagnosis Cellulitis of right upper extremity Cellulitis of right upper extremity Acute pain in joint Nausea Cerebral palsy Depression Scoliosis Failure of outpatient treatment Hypokalemia
[2016-12-17 13:13] LABS: BASOPHILS % (AUTO) 0.3 % (0-2); EOSINOPHILS # (AUTO) 0.1 T/MM3 (0-0.5); EOSINOPHILS % (AUTO) 0.6 % (0-4); HGB - HEMOGLOBIN 12.4 GM/DL (12-16); IMMATURE GRANULOCYTE # (AUTO) 0.01 T/MM3 (0.00-0.03); IMMATURE GRANULOCYTE % (AUTO) 0.1 % (0.0-0.5); LYMPHOCYTES # (AUTO) 1.8 T/MM3 (1-4.8); LYMPHOCYTES % (AUTO) 20.8 % (23-45); MEAN CORPUSCULAR HGB 25.8 UUG (26-34); MEAN CORPUSCULAR HGB CONC(MCHC 31.8 GM/DL (31-37); MEAN CORPUSCULAR VOLUME 81.3 UM3 (80-100); MEAN PLATELET VOLUME 8.8 UM3 (9.4-12.4); MONOCYTES # (AUTO) 0.5 T/MM3 (0-0.8); MONOCYTES % (AUTO) 5.5 % (0-9.0); NEUTROPHILS #(AUTO)-ABSOLUTE 6.4 T/MM3 (1.8-7.7); NEUTROPHILS % (AUTO) 72.7 % (33-66); WBC - WHITE BLOOD COUNT 8.7 T/MM3 (4.5-11.0)
[2016-12-17 13:30] LABS: ANION GAP 15 MEQ/L (5-15); BUN/CREATININE RATIO 19 RATIO (6-26); CALCIUM 9.7 MG/DL (8.4-10.2); CHLORIDE 105 MEQ/L (98-107); CO2 - CARBON DIOXIDE 25 MEQ/L (22-30); CREATININE 0.8 MG/DL (0.7-1.2); GLOMERULAR FILTRATION RATE 82; GLUCOSE 94 MG/DL (65-110); POTASSIUM 4.1 MEQ/L (3.6-5); SODIUM 145 MEQ/L (134-144)
--- NOTE | 2016-12-17 13:41 | NUR ---
REPORT REC'D FROM LÁZARO LEIJA. THIS RN WILL RESUME CARE.
[2016-12-17 13:55] VITALS: BP 129/59; PULSE 97; RESP 16; O2SAT 94
--- NOTE | 2016-12-17 13:55 | NUR ---
DISCHARGE WRITTEN INSTRUCTIONS REVIEWED AND SENT WITH PT. PT VERBALIZES UNDERSTANDING OF DI, DENIES QUESTIONS. PT EXITS ER BY ELECTRIC W/C TO LOBBY AT THIS TIME.
== END 2016-12-17 13:55 | disposition home or self-care (01) ==
LOC: ED 12:38
DX: R00.2 Palpitations (principal); R42 Dizziness and giddiness; R06.02 Shortness of breath
CPT/HCPCS: 36415; 80048; 84484; 85025; 93005